=== PATIENT | female | born 1950 | race Caucasian/White ===

== ENCOUNTER → 2018-05-10 15:27 | Outpatient (CLI) | payer MEDICARE, SELFPAY ==
--- NOTE | 2018-05-10 15:40 | RAD_ITS ---
STUDY: X-RAY - THORACIC SPINE REASON FOR EXAM: Female, 67 years old. Mid back pain TECHNIQUE: Two view(s) of the thoracic spine were obtained. COMPARISON: Thoracic spine and lumbar spine reports dated May 19, 2010 FINDINGS: Normal kyphosis of the thoracic spine. There is no significant scoliosis. There is marked decreased height of L1. There is minimal retrolisthesis of bone. There are small osteophytes scattered throughout the thoracic spine. There is mild disc space narrowing scattered throughout the thoracic spine. The thoracic aorta is ectatic. RAD/Thoracic Spine 2 Views IMPRESSION: There is marked compression of L1 which was not mentioned in the prior reports, but appears chronic. There is minimal retrolisthesis of bone at this level. If determination of acuity is needed, an MRI or nuclear medicine scan can be obtained. There are mild degenerative changes scattered throughout the thoracic spine. Electronically Signed: Anay Renee MD at 17:55 EDT Tel Direct: [phone], Service support ,
[2018-05-10 17:54] LABS: Absolute Lymphocyte Count 1.37 X10^3/ul (0.83-4.51); Absolute Neutrophil Count 3.9 X10^3/uL (2.0-7.7); Basophil# 0.03 X10^3/uL; Basophil% 0.5 % (0-1); Eosinophil# 0.15 X10^3/uL; Eosinophils% 2.5 % (0-5); Hematocrit 42.8 % (37-47); Hemoglobin 13.7 g/dl (12.0-15.0); Lymphocyte # 1.37 X10^3/ul (4.0); Lymphocyte % 23.2 % (19-41); Mean Corpuscular Hgb 27.4 pg (27.0-32.0); Mean Corpuscular Volume 85.6 fL (81-99); Mean Platelet Vol. 11.3 fl (6.2-12.0); Monocyte# 0.41 X10^3/uL; Monocyte% 6.9 % (0-10); Neutrophil # 3.93 X10^3/uL (2.7-7.7); Neutrophil % 66.7 % (47-70); Platelet Count 285 K/mm3 (150-450); RBC Distribution Width CV 14.3 % (11.6-14.6); RBC Distribution Width SD 44.2 fl (35.1-43.9); White Blood Count 5.9 K/mm3 (4.4-11.0)
[2018-05-10 17:57] LABS: POSITIVE COUNT NO; POSITIVE DIFFERENTIAL NO; POSITIVE MORPHOLOGY NO
[2018-05-10 18:52] LABS: Vitamin D,25 Hydroxy 33.4 ng/mL (29.95-100.01)
[2018-05-10 18:58] LABS: Anion Gap 8 (5-15); BUN 18 mg/dL (7-18); BUN/Creat Ratio 19.8 RATIO (10-20); Calcium,Total 9.1 mg/dL (8.5-10.1); Chloride 107 mmol/L (98-107); Cholesterol 169 mg/dL (200); Creatinine, Serum 0.91 mg/dL (0.55-1.02); EST Glomerular Filtration Rate 66 mL/min (>60); Est Glom Filt Rate - Afr Amer 80 mL/min (>60); Glucose 74 mg/dL (74-106); High Density Lipoprotein 52 mg/dL; Potassium 3.6 mmol/L (3.5-5.1); Sodium Level 141 mmol/L (136-145); Thyroid Stim Hormone (TSH) 1.25 uIU/mL (0.358-3.74); Triglycerides 74 mg/dL; Very Low Density Lipoprotein 15 mg/dL (5-40)
== END ==
PROVIDERS: Family Provider Family Medicine; PCP Family Medicine; Visit Provider Family Medicine
DX: Z00.00 Encounter for general adult medical examination without abnormal findings (principal); S29.019A Strain of muscle and tendon of unspecified wall of thorax, initial encounter; R33.9 Retention of urine, unspecified; E55.9 Vitamin D deficiency, unspecified; R39.9 Unspecified symptoms and signs involving the genitourinary system
CPT/HCPCS: 36415; 72070; 80048; 80061; 82306; 84443; 85025; 87086; 87088

== ENCOUNTER 2020-09-28 08:01 | Outpatient (RCR) | payer MEDICARE, SELFPAY ==
[2020-09-28] MEDS: COVID-19 VACC, MRNA(PFIZER)/PF 30 MCG/0.3 ML SYRINGE IM (10:57)
[2020-10-19] MEDS: COVID-19 VACC, MRNA(PFIZER)/PF 30 MCG/0.3 ML SYRINGE IM (10:44)
== END 2020-12-28 23:59 ==
LOC: IMMUN 08:01
PROVIDERS: PCP Family Medicine; Visit Provider Family Medicine
DX: Z23 Encounter for immunization (principal)
CPT/HCPCS: 0001A; 0002A; 91300

== ENCOUNTER 2021-08-05 13:00 | Emergency (ER) | payer MEDICARE, SELFPAY ==
[2021-08-05 13:00] VITALS: BP 139/90; PULSE 106; RESP 16; TEMP 36.4; O2SAT 97; BMI 27.4
--- NOTE | 2021-08-05 13:03 | RAD_ITS ---
STUDY: X-RAY - RIGHT ANKLE REASON FOR EXAM: Female, 71 years old. INJURY TECHNIQUE: 3 view(s) of the ankle. COMPARISON: None. FINDINGS: Oblique fracture of the medial malleolus. Nondisplaced transverse fracture of the lateral malleolus. Normal tibiotalar articulation and ankle mortise. Normal visualized talus and calcaneus. The visualized subtalar, talonavicular, calcaneocuboid and tarsal articulations are normal. Diffuse soft tissue swelling. RAD/Ankle min 3 Views IMPRESSION: Nondisplaced transverse fracture of the lateral malleolus and oblique fracture of the medial malleolus with diffuse soft tissue swelling. Electronically Signed: Kam Schulz MD at 13:30 EST , Service support ,
--- NOTE | 2021-08-05 15:19 | EKG12_ITS ---
Test Reason : LOWER EXTREMETY Blood Pressure : / mmHG Vent. Rate : 094 BPM Atrial Rate : 094 BPM P-R Int : 172 ms QRS Dur : 070 ms QT Int : 354 ms P-R-T Axes : 009 -26 013 degrees QTc Int : 442 ms Normal sinus rhythm Normal ECG Confirmed by FERMÍN DRAPER, GUEVARA ([id number]), editor school photograph VICTOR MANUEL HUERTAS ([id number]) on 08/08/2021 11:10:23 AM Referred By: MARY Confirmed By:GUEVARA KOVACS MD
[2021-08-05] MEDS: Morphine 4 MG/ML Syringe IV (15:41)
[2021-08-05] MEDS: Ondansetron 4 MG/2 ML Vial IV (15:41)
[2021-08-05] MEDS: 0.9% Normal Saline 1,000 ML 150 ML IV (15:43)
[2021-08-05 15:52] VITALS: BP 116/99; PULSE 101
--- NOTE | 2021-08-05 15:54 | EDS_ITS ---
HPI History of Present Illness Chief Complaint: Lower Extremity Injury Informant: patient Occured/Mechanism Mechanism/Context: Yes blunt trauma and Yes fall Comment: Patient missed last step. Onset/Context/Timing Context: Sudden Onset Timing: Continuous Quality of Pain: Dull and Aching Location: Right ankle Current Severity: Mild Maximum Severity: Severe Worsened by: Any type of movement Relieved by: Nothing Associated Symptoms Associated Symptoms: Positive for Loss of Funtion Narrative Narrative: Patient is a healthy 71-year-old woman who missed the last 6 Depp while blowing leaves outside. She is on no medication. She does not smoke. She does not drink. Her only complaint is ankle pain. Prior similar symptoms: No Recent Illness/Hospitalization: No PFSH PFSH Medical History no medical history no medical history Home Medications hydrocodone-acetaminophen 1 tab PO Q6H PRN PRN 5 Days #20 tablet 08/05/21 [Rx Last Taken Unknown] Allergy/AdvReac Type Severity Reaction Status Date / Time No Known Allergies Allergy Verified 08/05/21 13:02 Family History no significant family his Surgical History no surgical history no surgical history Social History (Updated 08/05/21 @ 15:[address] Joao Kc MD) household members: none Smoking Status: Never smoker alcohol intake: never substance use type: does not use ROS ROS ED Constitutional Constitutional ED: Denies chills, fever(s), subjective, sweats or weight loss Eyes Eyes: Denies blurry vision, change in vision or diplopia ENT ENT ED: Denies ear pain, rhinorrhea or sore throat Cardiovascular Cardiovascular: Denies chest pain or palpitations Respiratory/Chest Respiratory/Chest: Denies cough, dyspnea or dyspnea on exertion Gastrointestinal Gastrointestinal: Denies diarrhea, nausea or vomiting Genitourinary Genitourinary ED: Denies dysuria, hematuria or urinary frequency Musculoskeletal Musculoskeletal: Denies arthralgias, back pain, myalgias or neck pain Neurologic Neurologic: Denies paresthesias or weakness Hematologic/Lymphatic Hematologic/Lymphatic: Denies easy bleeding or easy bruising EXAM Physical Exam Const Vital Signs: 08/05/21 13:00 08/05/21 15:52 Temperature 97.5 F L Temperature Source Temporal Pulse Rate 106 H 101 H Respiratory Rate 16 Blood Pressure 139/90 H 116/99 H Blood Pressure Mean 106 104 Pulse Ox 97 Oxygen Delivery Method Room Air Positive well nourished and well developed General Appearance ED: well developed and other And appears uncomfortable and is anxious. HEENT normocephalic and atraumatic Eyes PERRL Eyes Narrative: Extract muscles are intact. Neck full ROM and supple Resp normal respiratory effort and clear to auscultation bilaterally Cardio regular rate, regular rhythm, S1 normal heart sound, S2 normal heart sound and no murmurs GI GI Narrative: No pain palpation of pelvis. Back/Spine no CVA tenderness Cervical Spine: Negative for cervical spine tenderness Thoracic Spine / Upper Back: Negative for thoracic spinal tenderness Lumbar Spine / Lower Back: Negative for lumbar spinal tenderness Extremity Negative for normal to inspection or full ROM Extremity Narrative: Patient has significant swelling in the right ankle with pain ovation over the lateral medial malleolus. DP and PT pulse are palpable. She able to move her toes General Extremety ED: Yes edema; Negative for cyanosis or weight-bearing difficulty General Extremity: edema; Negative for cyanosis or weight-bearing difficulty Psych mental status grossly normal Mood & Affect: anxious Skin no wounds Lesions: no lesions Rashes: no rashes MDM MDM MDM Narrative Medical decision making narrative: X-ray of the ankle per nurse protocol was en tered. Patient has a bimalleolar ankle fracture. Since he requires surgery EKG, chest x-ray and appropriate labs were ordered. Dr. Olguin was paged or the doctor change control manager for the group. She has never been seen by orthopedics or ankle specialist. Lab Data Attestation: I reviewed the patient's lab results. Labs: Laboratory Results - last 24 hr 08/05/21 08/05/21 15:39 15:39 WBC 9.5 RBC 5.21 Hgb 14.2 Hct 45.0 MCV 86.4 MCH 27.3 MCHC 31.6 L RDW Std Deviation 43.6 RDW Coeff of Maldonado 13.7 Plt Count 280 MPV 11.1 Sodium 141 Potassium 3.5 Chloride 108 H Carbon Dioxide 27.0 Anion Gap 6 BUN 18 Creatinine 0.98 Estim Creat Clear Calc 50.72 Est GFR (MDRD) Af Amer 73 Est GFR (MDRD) Non-Af 60 BUN/Creatinine Ratio 18.4 Glucose 97 Calcium 9.8 Radiography X-Ray: - (Three-view x-ray of the right ankle reveals a bimalleolar fracture. There is no displacement or angulation. There is significant soft tissue swelling noted. There is no widening of the mortise.) Diagnostic Testing: Clinical Impression(s) from Imaging Studies Ankle X-Ray 08/05/21 13:03 IMPRESSION: Nondisplaced transverse fracture of the lateral malleolus and oblique fracture of the medial malleolus with diffuse soft tissue swelling. Electronically Signed: Kam Schulz MD at 13:30 EST , Service support , Chest X-Ray 08/05/21 16:05 IMPRESSION: Normal x-ray examination of the chest. Electronically Signed: Hira Quiroz MD at 16:48 EST , Service support , Chest x-ray reveals no acute pathology. Cardiac silhouette size normal. Lung parenchyma is unremarkable. Osseous trucks are unremarkable. EKG Initial EKG: Attestation: I personally reviewed and interpreted this EKG as follows: Interpretation: Sinus Rhythm (EKG is normal. Rate is 94. DC interval 272 ms. QS duration 70 ms. QT duration 3 and 54 ms. [place] is normal.) Procedures Lower Extremity Splints Lower Extremity Splint: Plaster and Stirrup (Posterior short leg and stirrup splint was applied by me with assistance by nurse.) Splint Fabrication: Fabricated Location: Right Discharge Plan Triage Chief Complaint: Lower Extremity Injury ED Provider: Joao Kc Dx/Rx/DC Orders Clinical Impression: Bimalleolar fracture of right ankle Instructions: Ankle Fracture ORIF, ED Ankle Fracture Prescriptions: New hydrocodone-acetaminophen [hydrocodone-acetaminophen] 1 TABLET tablet 1 tab PO Q6H PRN PRN (Reason: Pain) 5 Days Qty: 20 RF: 0 Primary Care Provider: Michelle Deng Referrals: Michelle Deng MD [Primary Care Provider] - Cleveland Ahuja DPM [STAFF PHYSICIAN] - 3-5 Days Activity Restrictions/Additional Instructions: 1. Elevate foot, toes above nose 2. Apply ice 8-10 times per day 20 to 30 minutes per application 3. Do not place any weight on your right foot 4. Keep splint absolutely clean and dry 5. Customer Service Professional from Dr. Claudio Ahuja's office will contact you on Sunday to schedule outpatient appointment and discuss surgery Disposition Disposition: Home, Self Care
--- NOTE | 2021-08-05 16:05 | RAD_ITS ---
STUDY: X-RAY CHEST REASON FOR EXAM: Female, 71 years old. Preop for leg surgery TECHNIQUE: Single AP portable view of the chest. COMPARISON: None. FINDINGS: The lungs are clear and expanded. There is no demonstrated pleural abnormality. Normal size heart. Normal mediastinum and dell. Normal visualized pulmonary arteries. Normal visualized aortic arch and descending thoracic aorta. Normal visualized thoracic spine. Normal visualized ribs, clavicles, and shoulders. There is no demonstrated abnormality of the visualized soft tissue structures of the upper abdomen. RAD/Chest 1 View (Portable) IMPRESSION: Normal x-ray examination of the chest. Electronically Signed: Hira Quiroz MD at 16:48 EST , Service support ,
[2021-08-05 16:11] LABS: Hemoglobin 14.2 g/dL (12.0-15.0); Mean Corp Hgb Conc 31.6 g/dL (32-36); Mean Corpuscular Hgb 27.3 pg (27.0-32.0); Mean Corpuscular Volume 86.4 fL (81-99); Mean Platelet Vol. 11.1 fl (6.2-12.0); Platelet Count 280 K/mm3 (150-450); RBC Distribution Width CV 13.7 % (11.6-14.6); RBC Distribution Width SD 43.6 fl (35.1-43.9); Red Blood Count 5.21 M/mm3 (4.2-5.4); White Blood Count 9.5 K/mm3 (4.4-11.0)
[2021-08-05 16:21] LABS: Anion Gap 6 (5-15); BUN 18 mg/dL (7-18); BUN/Creat Ratio 18.4 RATIO (10-20); Calcium,Total 9.8 mg/dL (8.5-10.1); Chloride 108 mmol/L (98-107); Creatinine, Serum 0.98 mg/dL (0.55-1.02); EST Glomerular Filtration Rate 60 mL/min (>60); Est Glom Filt Rate - Afr Amer 73 mL/min (>60); Estimated Creatinine Clearance 50.72 ml/min; Glucose 97 mg/dL (74-106); Potassium 3.5 mmol/L (3.5-5.1); Sodium Level 141 mmol/L (136-145)
--- NOTE | 2021-08-05 17:50 | CM.ED ---
SOCIAL WORK Referral Source: Dr. Kc Reason for Consult: Resources Patient now with cast to right leg due to right ankle fracture. 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 Patient states has been speaking with family in [place] and is hopeful they will come to [place] to help care for mother. Patient provided with home health resources and private duty services. Patient to follow up with mother's PCP. All questions answered. Plan: Home with resources provided Khai Silva MSW, RIVER GUIDE
[2021-08-05] MEDS: HYDROcodone Bitartrate/Apap 5/325 Tablet PO (17:55)
[2021-08-05 18:35] VITALS: RESP 17; O2SAT 98
== END 2021-08-05 18:36 | disposition home or self-care (01) ==
PROVIDERS: Emergency Provider Emergency Medicine; PCP Family Medicine; Visit Provider Emergency Medicine
DX: S82.841A Displaced bimalleolar fracture of right lower leg, initial encounter for closed fracture (principal); W19.XXXA Unspecified fall, initial encounter
CPT/HCPCS: 71045; 73610; 80048; 85027; 93005; 96361; 96374; 96375; 99285; J7030; A4216; J2405

== ENCOUNTER 2021-08-08 14:03 | Outpatient (CLI) | payer MEDICARE, SELFPAY ==
[2021-08-08 15:26] LABS: Vitamin D,25 Hydroxy 54.5 ng/mL
== END 2021-08-08 23:59 | disposition short-term general hospital (02) ==
PROVIDERS: PCP Family Medicine; Visit Provider Podiatrist
DX: E55.9 Vitamin D deficiency, unspecified (principal)
CPT/HCPCS: 36415; 82306

== ENCOUNTER 2021-11-18 15:00 | Outpatient (RCR) | payer MEDICARE, SELFPAY ==
--- NOTE | 2021-10-25 16:36 | HP.PTEVAL_ITS ---
Patient's Visit Information HARVEY PABLO is a 71 year old F referred to Physical Therapy by Dr. Dottie Macario DPM with a diagnosis of R ankle Fx. Date of Evaluation: 10/25/21 Physical Therapist: Mauricio Lim, PT, ATC - Visit Plan Frequency: 2-3x /Week Duration: 4-6 Weeks Plan: Begin with transitioning to FWBing. Progress to no CAM boot as tolerated. R ankle stretching and strengthening, balance and proprio, nustep, and HEP - Subjective DOI: 08/05/21. Pt reports she was blowing leaves at that time and stepped off a step which resulted in a complex fracture of her R ankle. Pt reports this did not require surgery. Pt notes she was in a cast for 6 weeks, and now has been in a CAM boot for the past month. Pt reports she has been weight bearing for the past week now. Pt reports she is very motivated to get better at this time tiffanie use she lives with her mom and takes care of her. Pt also notes she is very active and needs to get better as soon as possible. Pt reports she has been walking with FWBing at home with her cane.Sleep difficulty secondary to pain. Pt is allowed to PWB with walker, but is encouraged to transition to FWBing as tolerated, and to transition to no CAM boot and walking shoe. No stairs at home. 0/10 pain at rest, 3/10 at worst (when pt runs out of pain meds) - Pain R ankle Pain Intensity (Out of 10): 0 Pain Intensity Range: 3 - Objective Neuro: B LE sensation is WNL to light touch. ROM: L ankle DF= 10, PF= 50; R ankle DF= 2, PF= 20. MMT: L ankle 5/5 throughout. R ankle is grossly 3-/5 throu ghout. Gait: Pt is able to ambulate approximately 4 steps in cam boot - Balance/Special Test Scores Lower Extremity Functional Score: 26 - Goals Goal 1:: Decrease R ankle pain x 50% to aid with sleep Goal Time Frame: 4-6 Weeks Goal 2:: Increase R ankle strength x 1 grade to aid with IADL's Goal Time Frame: 4-6 Weeks Goal 3:: Increase R ankle DF ROM x 10 degrees to aid with restoring gait pattern Goal Time Frame: 4-6 Weeks Goal 4:: I with HEP Goal Time Frame: 4-6 Weeks - Rehabilitation Potential Physical Therapy Diagnosis: Pt has R ankle pain, weakness, and limited ROM secondary to R ankle Fx Rehabilitation Potential: Good - Anticipated Interventions Thank you for the opportunity to evaluate your patient. For Medicare and Medicare HMO plans, please review the plan of care and approve it. It will need to be FAXED BACK to us at [phone] for Medicare purposes. For Medicare only, by signing this I certify the plan of care. Please let me know if there are questions or concerns regarding this plan of care. Physician Signature: Date:
--- NOTE | 2022-01-06 13:39 | HP.PTDCSUM ---
It has been my pleasure to treat HARVEY PABLO referred by Dr. Dottie Macario, DPM, with the diagnosis of R ankle Fx for a total of 8 visit(s). Discharge Date: Please see the following information for a summary of their discharge status. Subjective: Pt reports she is not ready for discharge but cant afford to continue. R ankle Pain Intensity (Out of 10): 5 % Improvement: 80 Objective/Function: R ankle pain ranges from 0-5/10. R ankle MMT: grossly 4-/5 throughout. R ankle DF ROM: 7 degrees. Pt is I with HEP. Pt is progressing well toward Rx goals Goal 1:: Decrease R ankle pain x 50% to aid with sleep Goal Progress: Progressing Goal 2:: Increase R ankle strength x 1 grade to aid with IADL's Goal Progress: Progressing Goal 3:: Increase R ankle DF ROM x 10 degrees to aid with restoring gait pattern Goal Progress: Progressing Goal 4:: I with HEP Goal Progress: Goal Met Plan: Discontinue to HEP If there are questions or concerns regarding this patient's physical therapy, please feel free to call me at [phone]. Thank you for the referral of this patient. Sincerely, Mauricio Lim, PT, ATC Balance/Gait/Functional tests - Balance/Special Test Scores Lower Extremity Functional Score: 42
== END 2021-11-18 19:00 | disposition home or self-care (01) ==
LOC: PT 15:00
PROVIDERS: PCP Family Medicine; Referring Provider Podiatrist; Visit Provider Podiatrist
DX: S82.891D Other fracture of right lower leg, subsequent encounter for closed fracture with routine healing (principal); X58.XXXD Exposure to other specified factors, subsequent encounter
CPT/HCPCS: 97110; 97161; 97164

== ENCOUNTER → 2022-02-06 | Outpatient (CLI) | payer MEDICARE, SELFPAY | END | disposition home or self-care (01) | LOC: MFPLAB 16:07 | PROVIDERS: PCP Family Medicine; Visit Provider Family Medicine | DX: N39.0 Urinary tract infection, site not specified (principal) | CPT/HCPCS: 87086; 87088 ==

== ENCOUNTER 2022-07-19 17:38 | Inpatient (IN) | payer MEDICARE, SELFPAY ==
[2022-07-19 17:38] VITALS: BP 120/76; PULSE 87; RESP 16; TEMP 36.5; O2SAT 98; BMI 22.6
--- NOTE | 2022-07-19 18:10 | RAD_ITS ---
STUDY: X-RAY - PELVIS AND RIGHT HIP REASON FOR EXAM: Female, 72 years old. fall TECHNIQUE: 3 views of the pelvis and hip. COMPARISON: None. FINDINGS: There is a non-specific bowel gas pattern. Normal visualized soft tissue structures. Normal bilateral iliac wings, sacroiliac joints and visualized sacrum. Normal bilateral superior and inferior pubic rami. Normal pubic symphysis. Normal bilateral ischial tuberosities. Acute impacted fracture the subcapital femoral neck. Normal acetabulum. Normal hip joint. RAD/Hip Min 2 Views (Portable) IMPRESSION: Acute impacted fracture the subcapital femoral neck. Electronically Signed: Julito Santana MD at 18:27 EST ,
[2022-07-19 18:15] VITALS: BP 124/99; PULSE 91; RESP 20; O2SAT 96
[2022-07-19 18:23] VITALS: O2SAT 98
--- NOTE | 2022-07-19 18:40 | EDS_ITS ---
HPI History of Present Illness HPI Narrative: Patient presents after a fall that occurred today. Patient states she tripped and fell. Patient states she landed on her right hip. Patient denies any loss of consciousness. Patient states she did hit her head. Patient was not on any blood thinners. Patient denies any paresthesias or weakness. Patient describes her pain as cramping and aching. Patient states her pain is worse with any movement. Patient states it is better with rest. Patient states she normally walks without any assistance. Chief Complaint: Fall Informant: patient Occured/Mechanism Mechanism/Context: Yes fall Onset/Context/Timing Onset: Today Context: Sudden Onset Timing: Continuous Quality of Pain: - (Cramping) Location: Right hip Worsened by: Movement Relieved by: Rest Associated Symptoms Associated Symptoms: Negative for Parasthesia, Weakness or Loss of Funtion PFSH PFSH Medical History no medical history Home Medications aspirin 81 mg tablet,delayed release 81 mg PO DAILY 07/19/22 [History Last Taken Unknown] Allergy/AdvReac Type Severity Reaction Status Date / Time hydromorphone [From Dilaudid] AdvReac Vomiting Verified 07/19/22 17:40 Surgical History no surgical history no surgical history Social History household members: none Smoking Status: Never smoker alcohol intake: never substance use type: does not use ROS ROS ED Constitutional Constitutional ED: Denies chills or fever(s) Eyes Eyes: Denies blurry vision or change in vision ENT ENT ED: Denies rhinorrhea or sore throat Cardiovascular Cardiovascular: Denies chest pain or palpitations Respiratory/Chest Respiratory/Chest: Denies cough or dyspnea Gastrointestinal Gastrointestinal: Denies nausea or vomiting Genitourinary Genitourinary ED: Denies dysuria or hematuria Musculoskeletal Musculoskeletal: Denies back pain or neck pain Integumentary Denies abscess or rash Neurologic Neurologic: Denies headache(s) or weakness Allergic/Immunologic Allergic/Immunologic ED: Denies mouth swelling or urticaria EXAM Physical Exam Const Vital Signs: 07/19/22 17:38 07/19/22 18:15 07/19/22 18:23 Temperature 97.7 F L Temperature Source Temporal Pulse Rate 87 91 Respiratory Rate 16 20 H Respiratory Effort Normal Non-Labored Respiratory Depth Normal Respiratory Pattern Normal Blood Pressure 120/76 124/99 H Blood Pressure Mean 90 107 Pulse Ox 98 96 98 Oxygen Delivery Method Room Air Room Air Room Air Positive well nourished and well developed General Appearance ED: well developed and NAD HEENT Reports moist mucous membranes Neck supple and no JVD Resp normal respiratory effort and clear to auscultation bilaterally Cardio regular rate, regular rhythm and no murmurs GI normal to inspection, nondistended, normoactive bowel sounds and non-tender Palpation: soft Extremity Extremity Narrative: There is shortening and external rotation of the right lower extremity. Range of motion was limited in all motions of the right hip secondary to pain. Sensation was intact to light touch in all digits. Pedal pulses are equal bilaterally. Neuro oriented x3, CN's II-XII intact bilaterally, moves all extremities and no sensory deficits noted Sensorium / Orientation: alert Motor Exam: strength 5/5 throughout Psych mental status grossly normal Skin no rashes or lesions noted MDM MDM MDM Narrative Medical decision making narrative: X-rays of the right hip were obtained. There are 3 views. On my interpretation, there is a subcapital fracture of the right femoral neck. There is some displacement. Radiologist also interpreted the x-rays and agrees. Portable 1 view chest x-ray was obtained. On my interpretation, lung marlow are clear. There is normal cardiac silhouette. Bony thorax is normal. There is no acute process noted. Radiologist also interpreted the x-ray and agrees. EKG was obtained. On my interpretation, it showed a normal sinus rhythm with a rate of 88. [place] interval, QRS interval, and QTc intervals were all normal. [place] was normal. There are no acute ST or T wave changes. Basic labs were obtained. CBC was within normal limits. PT was INR and PTT were within normal limits. Comprehensive metabolic profile was essentially within normal limits. Case was discussed with Dr. Correa from orthopedics. He will see the patient in consultation. Case was discussed with the hospitalist. He will admit the patient to his service. Patient understood and was agreeable with the plan. All questions were answered. Lab Data Attestation: I reviewed the patient's lab results. Labs: Laboratory Results - last 24 hr 07/19/22 07/19/22 07/19/22 18:26 18:26 18:26 WBC 10.2 RBC 4.72 Hgb 13.2 Hct 41.4 MCV 87.7 MCH 28.0 MCHC 31.9 L RDW Std Deviation 43.8 RDW Coeff of Maldonado 13.5 Plt Count 273 MPV 10.7 Immature Gran % (Auto) 0.800 Neut % (Auto) 82.1 H Lymph % (Auto) 10.7 L [place] % (Auto) 5.3 Eos % (Auto) 0.8 Baso % (Auto) 0.3 Absolute Neuts (auto) 8.3 H Absolute Lymphs (auto) 1.09 Nucleated RBC % 0 PT 14.1 INR 1.1 APTT 26.8 Sodium 141 Potassium 3.6 Chloride 106 Carbon Dioxide 26.0 Anion Gap 9 BUN 27 H Creatinine 1.04 H Estim Creat Clear Calc 47.12 Est GFR (MDRD) Af Amer 67 Est GFR (MDRD) Non-Af 56 L BUN/Creatinine Ratio 26.0 H Glucose 106 Calcium 10.0 Total Bilirubin 1.20 H AST 32 ALT 29 Alkaline Phosphatase 115 Total Protein 8.4 H Albumin 4.1 Globulin 4.3 H Albumin/Globulin Ratio 1.0 Radiography Chest X-Ray - ED: 1 View, Read by ED Physician, Read by Radiologist and No Acute Disease Diagnostic Testing: Clinical Impression(s) from Imaging Studies Hip X-Ray 07/19/22 18:10 IMPRESSION: Acute impacted fracture the subcapital femoral neck. Electronically Signed: Julito Santana MD at 18:27 EST , EKG Initial EKG: Attestation: I personally reviewed and interpreted this EKG as follows: Interpretation: Sinus Rhythm (70) and No Acute Injury Pattern Prior EKG tracings: available for review Prior: Unchanged (08/05/2021) Discharge Plan Dx/Rx/DC Orders Clinical Impression: Fracture of right hip, Fall Disposition Disposition: Acute Care [facility]
[2022-07-19] MEDS: Morphine 4 MG/ML Syringe IV ×2 (18:51→21:32)
--- NOTE | 2022-07-19 19:00 | RAD_ITS ---
STUDY: X-RAY CHEST REASON FOR EXAM: Female, 72 years old. Cough TECHNIQUE: Single AP portable view of the chest. COMPARISON: 08/05/2021 FINDINGS: The lungs are clear and expanded. There is no demonstrated pleural abnormality. Normal size heart. Normal mediastinum and dell. Normal visualized pulmonary arteries. There is atherosclerotic tortuosity of the aortic arch and descending thoracic aorta. Normal visualized thoracic spine. Normal visualized ribs, clavicles, and shoulders. There is no demonstrated abnormality of the visualized soft tissue structures of the upper abdomen. RAD/Chest 1 View (Portable) IMPRESSION: No active disease. Electronically Signed: Julito Santana MD at 19:29 EST ,
[2022-07-19 19:06] LABS: Absolute Lymphocyte Count 1.09 X10^3/uL (0.83-4.51); Absolute Neutrophil Count 8.3 X10^3/uL (2.0-7.7); Basophil# 0.03 X10^3/uL; Basophil% 0.3 % (0-1); Eosinophil# 0.08 X10^3/uL; Eosinophils% 0.8 % (0-5); Hematocrit 41.4 % (37-47); Hemoglobin 13.2 g/dL (12.0-15.0); Lymphocyte # 1.09 X10^3/ul (0.83-4.51); Lymphocyte % 10.7 % (19-41); Mean Corp Hgb Conc 31.9 g/dL (32-36); Mean Corpuscular Volume 87.7 fL (81-99); Mean Platelet Vol. 10.7 fl (6.2-12.0); Monocyte# 0.54 X10^3/uL; Monocyte% 5.3 % (0-10); NRBC Flagged by Analyzer 0 % (0-5); Neutrophil # 8.33 X10^3/uL (2.7-7.7); Neutrophil % 82.1 % (47-70); Platelet Count 273 K/mm3 (150-450); RBC Distribution Width CV 13.5 % (11.6-14.6); RBC Distribution Width SD 43.8 fl (35.1-43.9); Red Blood Count 4.72 M/mm3 (4.2-5.4); White Blood Count 10.2 K/mm3 (4.4-11.0)
[2022-07-19 19:14] LABS: International Normalized Ratio 1.1; Prothrombin Time (Protime)PT. 14.1 SECONDS (11.7-14.9)
[2022-07-19 19:15] LABS: Partial Thromboplast Time 26.8 Seconds (24.1-36.2)
[2022-07-19 19:24] LABS: AST(SGOT) 32 U/L (15-37); Alanine Aminotransfer ALT/SGPT 29 U/L (13-56); Albumin, Serum 4.1 g/dL (3.2-5.0); Alkaline Phosphatase 115 U/L (45-117); Anion Gap 9 (5-15); BUN 27 mg/dL (7-18); Chloride 106 mmol/L (98-107); Creatinine, Serum 1.04 mg/dL (0.55-1.02); EST Glomerular Filtration Rate 56 mL/min (>60); Est Glom Filt Rate - Afr Amer 67 mL/min (>60); Estimated Creatinine Clearance 47.12 ml/min; Globulin 4.3 g/dL (2.2-4.2); Glucose 106 mg/dL (74-106); Potassium 3.6 mmol/L (3.5-5.1); Protein, Total 8.4 g/dL (6.4-8.2); Sodium Level 141 mmol/L (136-145)
[2022-07-19 19:33] VITALS: BP 123/87; PULSE 88; RESP 17; TEMP 36.4; O2SAT 99
--- NOTE | 2022-07-19 19:46 | PCM.HP.STD ---
HPI - General General Date of Admission: 07/19/22 HPI Narrative HARVEY PABLO, is a 72 F who presents to the hospital after mechanical fall on uneven concrete. She landed on her right side and has a femoral neck fracture. She does have any significant medical history only takes an aspirin no significant family history either. She is never had surgery before but she did have an ankle fracture few years ago that was managed with just a cast. Surgical risk calculator is below average risk. She did hit her head but did not lose consciousness. [facility] Medical History no medical history no medical history Home Medications aspirin 81 mg tablet,delayed release 81 mg PO DAILY 07/19/22 [History Last Taken Unknown] Allergy/AdvReac Type Severity Reaction Status Date / Time hydromorphone [From Dilaudid] AdvReac Vomiting Verified 07/19/22 17:40 Family History (Updated 07/19/22 @ 19:[address] Claudio Wolf MD) Other CVA (cerebral vascular accident) Heart disease Surgical History no surgical history no surgical history Social History household members: none Smoking Status: Never smoker alcohol intake: never substance use type: does not use ROS Constitutional Constitutional: Denies chills, fatigue, fever(s) or malaise Eyes Eyes: Denies blurry vision ENT HEENT: Denies headache(s) or nasal discharge Cardiovascular Cardiovascular: Denies chest pain, dyspnea on exertion or syncope Respiratory/Chest Respiratory/Chest: Denies cough, shortness of breath at rest or shortness of breath with exertion Gastrointestinal Gastrointestinal: Denies constipation, diarrhea, nausea or vomiting Genitourinary Genitourinary: Denies dysuria Musculoskeletal Musculoskeletal: Reports joint pain Neurologic Neurologic: Denies focal weakness, numbness or tremor(s) Psychiatric Psychiatric: Denies anxiety or depression Vital Signs Vital Signs Vital Signs: 07/19/22 17:38 07/19/22 18:15 07/19/22 18:23 Temperature 97.7 F L Temperature Source Temporal Pulse Rate 87 91 Respiratory Rate 16 20 H Respiratory Effort Normal Non-Labored Respiratory Depth Normal Respiratory Pattern Normal Blood Pressure 120/76 124/99 H Blood Pressure Mean 90 107 Pulse Ox 98 96 98 Oxygen Delivery Method Room Air Room Air Room Air 07/19/22 19:33 Temperature 97.6 F L Temperature Source Temporal Pulse Rate 88 Respiratory Rate 17 Respiratory Effort Respiratory Depth Respiratory Pattern Blood Pressure 123/87 H Blood Pressure Mean 99 Pulse Ox 99 Oxygen Delivery Method Room Air Weight Weight: 140 lb Body Mass Index (BMI) 22.6 Physical Exam Narrative General: Alert, Oriented x3, Cooperative, No apparent distress HEENT: Atraumatic, PERRLA, EOMI, Normocephalic Oral: Moist Mucosa Neck: Supple, No JVD Lungs: Clear to auscultation, Normal air movement, No rhonchi, No wheeze, No rales Cardiovascular: Regular rate, Regular Rhythm, Normal S1, Normal S2, No murmurs Abdomen: Soft, Non Tender, Non-Distended, No Hepato-splenomegaly Extremities: No edema, Capillary Refill Less than 3 Seconds Skin: No rashes, No breakdown Musculoskeletal: Right hip pain Neurological: Cranial nerves II-XII grossly intact, Motor Exam 5/5 strength throughout, Sensory exam intact to light touch and pain Psych/Mental Status: Normal Affect, Appropriate Results Lab / Micro Data Result Diagrams: 07/19/22 18:26 07/19/22 18:26 Labs: Laboratory Results - last 24 hr 07/19/22 18:26: WBC 10.2, RBC 4.72, Hgb 13.2, Hct 41.4, MCV 87.7, MCH 28.0, MCHC 31.9 L, RDW Std Deviation 43.8, RDW Coeff of Maldonado 13.5, Plt Count 273, MPV 10.7, Immature Gran % (Auto) 0.800, Neut % (Auto) 82.1 H, Lymph % (Auto) 10.7 L, [place] % (Auto) 5.3, Eos % (Auto) 0.8, Baso % (Auto) 0.3, Absolute Neuts (auto) 8.3 H, Absolute Lymphs (auto) 1.09, Nucleated RBC % 0 07/19/22 18:26: PT 14.1, INR 1.1, APTT 26.8 07/19/22 18:26: Sodium 141, Potassium 3.6, Chloride 106, Carbon Dioxide 26.0, Anion Gap 9, BUN 27 H, Creatinine 1.04 H, Estim Creat Clear Calc 47.12, Est GFR (MDRD) Af Amer 67, Est GFR (MDRD) Non-Af 56 L, BUN/Creatinine Ratio 26.0 H, Glucose 106, Calcium 10.0, Total Bilirubin 1.20 H, AST 32, ALT 29, Alkaline Phosphatase 115, Total Protein 8.4 H, Albumin 4.1, Globulin 4.3 H, Albumin/Globulin Ratio 1.0 Radiology Impression Hip X-Ray 07/19/22 18:10 IMPRESSION: Acute impacted fracture the subcapital femoral neck. Electronically Signed: Julito Santana MD at 18:27 EST Reading Location ID and State: [id number] / [facility] Tel , Service support , Chest X-Ray 07/19/22 19:00 IMPRESSION: No active disease. Electronically Signed: Julito Santana MD at 19:29 EST Reading Location ID and State: [id number] / [facility] , Service support , Assessment & Plan Assessment/Plan (1) Fracture of right hip: PLAN: Plan 1. Right femoral neck fracture ? We will consult orthopedic surgery for operative repair ? She is below average risk ? We will place her on morphine for pain ? We will make her n.p.o. after midnight but allow her to eat tonight ? Repeat lab work in the morning DVT: Lovenox Charges/Coding Visit Charges Inpatient E&M: 90322 Init Hosp L2
[2022-07-19 20:37] VITALS: RESP 15
[2022-07-19 21:19] VITALS: BMI 22.6
[2022-07-19 21:30] VITALS: BP 112/72; PULSE 86; RESP 18; TEMP 36.9; O2SAT 98
[2022-07-19] MEDS: 0.9% Saline Lock 10 ML Syringe IV (21:32)
[2022-07-19 23:19] LABS: Vitamin D,25 Hydroxy 84.7 ng/mL
[2022-07-20] VITALS (13 sets, daily range): BP systolic 82–148; BP diastolic 51–88; PULSE 75–90; RESP 15–20; TEMP 36.2–37.2; O2SAT 92–100; BMI 22.6
[2022-07-20] MEDS: 0.9% Normal Saline 1,000 ML 100 ML IV ×3 (00:11→22:23)
[2022-07-20] MEDS: Ondansetron 4 MG/2 ML Vial IV (00:59)
[2022-07-20] MEDS: Morphine 4 MG/ML Syringe IV (01:00)
--- NOTE | 2022-07-20 06:07 | CON.PCM.OR_ITS ---
HPI Consult Data Date of Consult: 07/20/22 HPI Narrative HPI Narrative: HARVEY PABLO, is a 72 F who presented to [facility] after a fall on uneven concrete 07/19/2022. Patient landed on her right side. Patient is a community ambulator without assistive device. Denies antecedent right hip or groin pain. Reports head injury but no loss of consciousness, no confusion, no headache, no vision or auditory changes. Denies neck pain or neck injury. Denies fevers, chills, nausea vomiting, chest pain or shortness of breath. Patient was evaluated by emergency room physician date of injury and x-rays revealed a displaced right femoral neck fracture. I was called from emergency department. I recommended patient be admitted on the service of the hospitalist and surgical intervention. I saw the patient in consultation this morning. She denied any other symptoms this morning. [facility] Medical History (Updated 07/19/22 @ 21:22 by Timmy Rivers) Ankle fracture Depression Medical History no medical history Home Medications aspirin 81 mg tablet,delayed release 81 mg PO DAILY heart health 07/19/22 [History Last Taken 07/19/22] cholecalciferol (vitamin D3) 25 mcg (1,000 unit) capsule (Vitamin D3) 25 mcg PO DAILY supplement 07/19/22 [History Last Taken 07/19/22] multivitamin 1 tab PO DAILY supplement 07/19/22 [History Last Taken 07/19/22] Allergy/AdvReac Type Severity Reaction Status Date / Time hydromorphone [From Dilaudid] AdvReac Vomiting Verified 07/19/22 17:40 Family History (Updated 07/19/22 @ 19:[address] Claudio Wolf MD) Other CVA (cerebral vascular accident) Heart disease Surgical History no surgical history Social History household members: none Smoking Status: Never smoker alcohol intake: never substance use type: does not use ROS ROS Narrative 12 point review of systems obtained, negative unless otherwise noted in HPI. Vital Signs Vital Signs Vital Signs: 07/19/22 17:38 07/19/22 18:15 07/19/22 18:23 Temperature 97.7 F L Temperature Source Temporal Pulse Rate 87 91 Pulse Strength Respiratory Rate 16 20 H Respiratory Effort Normal Non-Labored Respiratory Depth Normal Respiratory Pattern Normal Blood Pressure 120/76 124/99 H Blood Pressure Mean 90 107 Blood Pressure Source Blood Pressure Position Blood Pressure Location Pulse Ox 98 96 98 Oxygen Delivery Method Room Air Room Air Room Air 07/19/22 19:33 07/19/22 21:30 07/19/22 20:37 Temperature 97.6 F L 98.4 F Temperature Source Temporal Oral Pulse Rate 88 86 Pulse Strength Respiratory Rate 17 18 15 Respiratory Effort Non-Labored Respiratory Depth Normal Respiratory Pattern Normal Blood Pressure 123/87 H 112/72 Blood Pressure Mean 99 85 Blood Pressure Source Monitor Blood Pressure Position Semi-Fowlers Blood Pressure Location Left Arm Pulse Ox 99 98 Oxygen Delivery Method Room Air Room Air 07/19/22 22:00 07/20/22 00:53 07/20/22 02:37 Temperature 97.9 F Temperature Source Temporal Pulse Rate 79 Pulse Strength Weak (1+) Respiratory Rate 15 15 Respiratory Effort Normal Non-Labored Respiratory Depth Normal Respiratory Pattern Normal Blood Pressure 94/61 Blood Pressure Mean 72 Blood Pressure Source Monitor Blood Pressure Position Semi-Fowlers Blood Pressure Location Left Arm Pulse Ox 94 Oxygen Delivery Method Room Air Room Air 07/20/22 05:11 Temperature 98.2 F Temperature Source Oral Pulse Rate 77 Pulse Strength Respiratory Rate 15 Respiratory Effort Respiratory Depth Respiratory Pattern Blood Pressure 95/64 Blood Pressure Mean 74 Blood Pressure Source Monitor Blood Pressure Position Semi-Fowlers Blood Pressure Location Left Arm Pulse Ox 92 Oxygen Delivery Method Room Air Weight Weight: 140 lb 10.479 oz Body Mass Index (BMI) 22.6 Physical Exam Narrative General -A&Ox3, NAD, appears stated age. Vital signs stable, afebrile. Respiratory -normal work of breathing, no intercostal retractions. CV -pulses regular, brisk capillary refill ?4 limbs. Abdomen-soft, nontender, nondistended. No guarding, rigidity, rebound tendern ess. Musculoskeletal/neurologic -full range of motion nontender throughout bilateral upper extremities, left lower extremity with full sensation and strength in all dermatomes and myotomes. No midline cervical tenderness. Right lower extremity-shortened, abducted and externally rotated. Pain with logroll of the right lower extremity. Nontender throughout the right knee femoral shaft, tibial shaft and right foot/ankle. Brisk capillary refill. Sensation intact light touch L3-S1 dermatomes. DF, PF, EHL intact. DP, PT 2+. Pelvis is stable, nontender. Skin is intact without lacerations, abrasions. No ecchymosis noted. Lab / Micro Data Result Diagrams: 07/19/22 18:26 07/19/22 18:26 Labs: Laboratory Results - last 24 hr 07/19/22 18:26: WBC 10.2, RBC 4.72, Hgb 13.2, Hct 41.4, MCV 87.7, MCH 28.0, MCHC 31.9 L, RDW Std Deviation 43.8, RDW Coeff of Maldonado 13.5, Plt Count 273, MPV 10.7, Immature Gran % (Auto) 0.800, Neut % (Auto) 82.1 H, Lymph % (Auto) 10.7 L, [place] % (Auto) 5.3, Eos % (Auto) 0.8, Baso % (Auto) 0.3, Absolute Neuts (auto) 8.3 H, Absolute Lymphs (auto) 1.09, Nucleated RBC % 0 07/19/22 18:26: PT 14.1, INR 1.1, APTT 26.8 07/19/22 18:26: Sodium 141, Potassium 3.6, Chloride 106, Carbon Dioxide 26.0, Anion Gap 9, BUN 27 H, Creatinine 1.04 H, Estim Creat Clear Calc 47.12, Est GFR (MDRD) Af Amer 67, Est GFR (MDRD) Non-Af 56 L, BUN/Creatinine Ratio 26.0 H, Glucose 106, Calcium 10.0, Total Bilirubin 1.20 H, AST 32, ALT 29, Alkaline Phosphatase 115, Total Protein 8.4 H, Albumin 4.1, Globulin 4.3 H, Album in/Globulin Ratio 1.0 07/19/22 18:26: Vitamin D 25-Hydroxy 84.7 07/19/22 18:26: Blood Type O POSITIVE, Antibody Screen NEGATIVE Radiology Impression Hip X-Ray 07/19/22 18:10 IMPRESSION: Acute impacted fracture the subcapital femoral neck. Electronically Signed: Julito Santana MD at 18:27 EST , Chest X-Ray 07/19/22 19:00 IMPRESSION: No active disease. Electronically Signed: Julito Santana MD at 19:29 EST , Assessment & Plan Assessment/Plan (1) Fracture of right hip: PLAN: Patient sustained a displaced right femoral neck fracture -Closed, neurovascularly intact -Isolated injury -Recommending surgical intervention in the form of right total hip arthroplasty. We discussed right hip hemiarthroplasty. We discussed the risks and benefits as well as alternatives. Due to her age and functional status, I did recommend a total hip arthroplasty. She agreed and wished to proceed with surgery. Risks include but are not limited to bleeding, infection, loss of life or limb, risk of anesthesia, persistent pain or disability, need for additional surgery, instability, periprosthetic fracture, failure of orthopedic hardware, neurovascular injury, DVT or PE. Patient expressed understanding these risks and wished proceed with surgery. -Maintenance IV fluids, clear liquid diet after midnight n.p.o. at 2 hours prior to surgery -Type and screen -2 g Ancef, TXA on-call to the OR -Bedrest, heel protectors -Plan to proceed with surgery later today when OR becomes available Thank you for this consultation.
[2022-07-20 06:14] LABS: Absolute Lymphocyte Count 1.02 X10^3/uL (0.83-4.51); Absolute Neutrophil Count 5.2 X10^3/uL (2.0-7.7); Basophil# 0.03 X10^3/uL; Basophil% 0.4 % (0-1); Eosinophil# 0.14 X10^3/uL; Hemoglobin 12.7 g/dL (12.0-15.0); Lymphocyte # 1.02 X10^3/ul (0.83-4.51); Lymphocyte % 14.9 % (19-41); Mean Corp Hgb Conc 31.8 g/dL (32-36); Mean Corpuscular Hgb 28.6 pg (27.0-32.0); Mean Corpuscular Volume 90.1 fL (81-99); Monocyte# 0.39 X10^3/uL; Monocyte% 5.7 % (0-10); NRBC Flagged by Analyzer 0 % (0-5); Neutrophil # 5.23 X10^3/uL (2.7-7.7); Neutrophil % 76.6 % (47-70); Platelet Count 197 K/mm3 (150-450); RBC Distribution Width CV 13.6 % (11.6-14.6); RBC Distribution Width SD 45.1 fl (35.1-43.9); Red Blood Count 4.44 M/mm3 (4.2-5.4); White Blood Count 6.8 K/mm3 (4.4-11.0)
[2022-07-20 06:42] LABS: ALB/GLOB Ratio 0.9 RATIO (0.9-2.4); AST(SGOT) 29 U/L (15-37); Alanine Aminotransfer ALT/SGPT 25 U/L (13-56); Albumin, Serum 3.6 g/dL (3.2-5.0); Alkaline Phosphatase 102 U/L (45-117); Anion Gap 5 (5-15); BUN 24 mg/dL (7-18); BUN/Creat Ratio 27.4 RATIO (10-20); Calcium,Total 8.5 mg/dL (8.5-10.1); Chloride 107 mmol/L (98-107); Creatinine, Serum 0.88 mg/dL (0.55-1.02); EST Glomerular Filtration Rate 68 mL/min (>60); Est Glom Filt Rate - Afr Amer 82 mL/min (>60); Estimated Creatinine Clearance 55.69 ml/min; Glucose 111 mg/dL (74-106); Potassium 3.9 mmol/L (3.5-5.1); Protein, Total 7.6 g/dL (6.4-8.2); Sodium Level 138 mmol/L (136-145)
[2022-07-20] MEDS: Morphine 2 MG/ML Syringe IV ×3 (08:07→17:20)
--- NOTE | 2022-07-20 13:40 | CASEMGMT ---
HOMERO PEÑA Assessment: Face to Face with pt for initial transition planning/care coordination assessment. RN MARIANA introduced self and role at [facility], pt voices understanding and consents to assessment. Pt is A/O x4 and answers all questions appropriately at this time. Pt lying in bed in no distress. Care providers, pharmacy, and demographics verified/updated. Admitting Dx: hip fracture PCP:Sowmya Specialists:Pt denies Preferred Pharmacy: [facility] [place] Insurance: [employer] [facility] Prescription Benefit: yes LNOK: Danielisidrakatelyn Claudia, friend Living Arrangements: Pt lives alone in a single story house with no steps to enter. Pt reports she was I in ADL's prior and denies concerns at home. Transportation: Pt drives self and denies concerns with transportation. Pt friend Matilde will transport pt post surgery. DME/HHC/SNF: Pt has a FWW, cane, w/c at home but does not use any AD. Pt denies hx of HHC or SNF stays. Pt states no concerns with going home at time of dc. She would like to return home if able. Discussed that after surgery will see how pt does with therapy and what recommendations are made for her. Pt is agreeable to this. Pt states no further concerns/needs. CM to follow. Advised pt to ask CM if any further question/concerns/needs arise, voices understanding. Pt Goal: Home Plan: TBD pending surgery and therapy evals.
--- NOTE | 2022-07-20 15:45 | CASEMGMT ---
social Work Per bedside nurse, pt states she does have a living will and health care POA naming Laura Stratton. Pt is aware documents are not on file at [facility]. KEVIN Chong
--- NOTE | 2022-07-20 16:19 | PN.HOSP_ITS ---
Subjective Subjective Patient still complaining of right hip pain. Suffered mechanical fall resulting in right hip fracture. OR later today. Objective Data Objective Data Vital Signs: Vital Signs Temp Pulse Resp BP Pulse Ox O2 Del Method O2 Flow Rate 98.2 F 80 18 148/88 H 93 Room Air 2 07/20/22 11:50 07/20/22 11:50 07/20/22 11:50 07/20/22 11:50 07/20/22 11:50 07/20/22 14:59 07/20/22 11:50 Oxygen Flow Rate (L/min) 2 Oxygen Delivery Method Room Air Weight: 63.8 kg Body Mass Index (BMI) 22.6 Intake & Output: Intake and Output for Last 24 Hours 07/18/22 07/19/22 07/20/22 23:59 23:59 23:59 Intake Total 1261.67 / 1261.67 Output Total 200 / 200 Balance 1061.67 / 1061.67 Lab / Micro Data Result Diagrams: 07/20/22 05:09 07/20/22 05:09 Labs: Laboratory Results - last 24 hr 07/19/22 18:26: WBC 10.2, RBC 4.72, Hgb 13.2, Hct 41.4, MCV 87.7, MCH 28.0, MCHC 31.9 L, RDW Std Deviation 43.8, RDW Coeff of Maldonado 13.5, Plt Count 273, MPV 10.7, Immature Gran % (Auto) 0.800, Neut % (Auto) 82.1 H, Lymph % (Auto) 10.7 L, [place] % (Auto) 5.3, Eos % (Auto) 0.8, Baso % (Auto) 0.3, Absolute Neuts (auto) 8.3 H, Absolute Lymphs (auto) 1.09, Nucleated RBC % 0 07/19/22 18:26: PT 14.1, INR 1.1, APTT 26.8 07/19/22 18:26: Sodium 141, Potassium 3.6, Chloride 106, Carbon Dioxide 26.0, Anion Gap 9, BUN 27 H, Creatinine 1.04 H, Estim Creat Clear Calc 47.12, Est GFR (MDRD) Af Amer 67, Est GFR (MDRD) Non-Af 56 L, BUN/Creatinine Ratio 26.0 H, Glucose 106, Calcium 10.0, Total Bilirubin 1.20 H, AST 32, ALT 29, Alkaline Phosphatase 115, Total Protein 8.4 H, Albumin 4.1, Globulin 4.3 H, Albumin/Globulin Ratio 1.0 07/19/22 18:26: Vitamin D 25-Hydroxy 84.7 07/19/22 18:26: Blood Type O POSITIVE, Antibody Screen NEGATIVE 07/20/22 05:09: WBC 6.8, RBC 4.44, Hgb 12.7, Hct 40.0, MCV 90.1, MCH 28.6, MCHC 31.8 L, RDW Std Deviation 45.1 H, RDW Coeff of Maldonado 13.6, Plt Count 197, MPV 11.0, Immature Gran % (Auto) 0.400, Neut % (Auto) 76.6 H, Lymph % (Auto) 14.9 L, [place] % (Auto) 5.7, Eos % (Auto) 2.0, Baso % (Auto) 0.4, Absolute Neuts (auto) 5.2, Absolute Lymphs (auto) 1.02, Nucleated RBC % 0 07/20/22 05:09: Sodium 138, Potassium 3.9, Chloride 107, Carbon Dioxide 26.0, Anion Gap 5, BUN 24 H, Creatinine 0.88, Estim Creat Clear Calc 55.69, Est GFR (MDRD) Af Amer 82, Est GFR (MDRD) Non-Af 68, BUN/Creatinine Ratio 27.4 H, Glucose 111 H, Calcium 8.5, Total Bilirubin 2.00 H, AST 29, ALT 25, Alkaline Phosphatase 102, Total Protein 7.6, Albumin 3.6, Globulin 4.0, Albumin/Globulin Ratio 0.9 Radiography Diagnostic Testing: Radiology Impression Hip X-Ray 07/19/22 18:10 IMPRESSION: Acute impacted fracture the subcapital femoral neck. Electronically Signed: Julito Santana MD at 18:27 EST , Chest X-Ray 07/19/22 19:00 IMPRESSION: No active disease. Electronically Signed: Julito Santana MD at 19:29 EST , Physical Exam Const alert, oriented x3, healthy appearing and well nourished Constitutional Narrative: Older white female lying in bed, friend at bedside, patient is anxious but very pleasant HEENT head/scalp atraumatic and moist oral mucous membranes Head and Scalp: normocephalic Resp normal respiratory effort, no retractions, no use of accessory muscles and clear to auscultation bilaterally Auscultation: Negative for crackles, rhonchi or wheezes Cardio regular rate, regular rhythm, S1 normal heart sound, S2 normal heart sound, no murmurs, no rub, no gallops and no clicks GI normal to inspection, nondistended, normoactive bowel sounds, soft to palpation and non-tender Extremity no clubbing, cyanosis or edema Extremity Narrative: Right lower extremity is shortened and externally rotated Neuro oriented x3 Neuro Narrative: Decreased ability move right lower extremity secondary to pain at the hip but otherwise movement is symmetrical without focal deficits Speech: speech normal Psych Psych Narrative: Pleasant Mood & Affect: anxious Assessment & Plan Assessment/Plan (1) Fracture of right hip: PLAN: Plan Right impacted subcapital fracture of the femoral neck -OR later today -DVT prophylaxis per primary service -Continue pain medications as needed -PT/OT postoperatively -Vitamin D level is within normal limits -Chest x-ray and EKG unremarkable -Patient may need placement and would prefer TCU or rehab but may be able to go home depending on progress with therapy services after surgery Fall -Fall was mechanical -PT/OT following surgery DVT prophylaxis -Per primary service CODE STATUS -Full code Charges/Coding Visit Charges Inpatient E&M: 22254 Subs Hosp L2
--- NOTE | 2022-07-20 16:30 | HIP_PTH ---
PATIENT: HARVEY PABLO LOC: [facility] U#:[id number] AGE/SX: 72/F ROOM: [facility] RE07/19/[address]: Dr. Loren Davis MD : 1950 BED: 1 DIS: 07/25/2022 SPEC #: [id number] RECD: 07/21/22 08:43 STATUS: DANIELE JARAMaria Elena #: [id number] KANDACE: 07/20/22 16:[address]: Claudio Correa DEPT: SURGICAL PATHOLOGY RECD BY: Herminia Vega ENTERED: 07/21/22 09:17 SP TYPE: TOTAL HIP OTHR DR: MD Dr. Karen Rey DO Dr. Nicholas F Kotsonis, MD Tissues: Hip, NOS Procedures: Decalcification bone/plaque Surgery Specimen Level IV HEADER OPERATION: Total hip arthroplasty PRE-OP DIAGNOSIS: Fracture of right hip TISSUE SUBMITTED: Right femoral head MICROSCOPIC DIAGNOSIS Right femoral head, total hip arthroplasty/resection: Femoral head with focal area of hemorrhage, clinically fracture of right hip. DAVID:joanne 07/27/2022 MICROSCOPIC DESCRIPTION Slides are reviewed. GROSS DESCRIPTION Received is one container labeled with the patient's name and designated right femoral head. The specimen consists of a aguila femoral head measuring 4.5 x 4.5 x 4 cm. The articular surface is smooth. Resection margin is irregular and hemorrhagic. Also present in the specimen container are multiple detached pieces of bone reamings and pieces of bone measuring in aggregate 9 x 7 x 2.5 cm. No soft tissue is identified. Job Forwarder sections are submitted in three cassettes after decalcification as follows: 1 - detached pieces of bone, 2 & 3 - femoral head after decalcification. / Andrew 07/21/2022 TC:5 CPT: 35948, 52160
[2022-07-20] MEDS: Lactated Ringers 1,000 ML 15 ML IV ×2 (18:05→21:36)
[2022-07-20] MEDS: Cefazolin 2 GM in 0.9% Normal Saline 100 ML IV ×2 (18:52→22:52)
--- NOTE | 2022-07-20 21:25 | RAD_ITS ---
INDICATION: Post Op -- AP both hips on single ericka/lateral of op hip PACU EXAMINATION/TECHNIQUE: X-RAY - RIGHT XR Hip Unilateral with Pelvis when performed; 2-3 Views 2 VIEWS COMPARISON: None. RAD/Hip Min 2 Views (Portable) IMPRESSION: Right hip total arthroplasty in anatomic alignment. Expected postoperative soft tissue gas. Electronically Signed: Alan Wilson MD at 21:40 EST ,
[2022-07-20] MEDS: Senna/Docusate Sodium 1 Tablet 2 TABLET PO (22:52)
--- NOTE | 2022-07-20 22:56 | OP.PCM_ITS ---
Report of Operation Date of Procedure: 07/20/22 Description of Surgical Findings:: Preoperative diagnosis: Right displaced femoral neck fracture Postoperative diagnosis: Right displaced femoral neck fracture Procedure: Right total hip arthroplasty Surgeon: Claudio Correa DO Senior Product Marketing Manager: MICHA Nunes Anesthesia: General endotracheal Anesthesiologist: Dr. Giron Complications: None Drains: None Estimated blood loss: 200 cc Urinary output: None recorded IV fluids: 1300 cc crystalloid Specimens: Right femoral head Surgical implants: Johana Accolade two 127 degree neck angle hip stem size #6, Biolox ceramic V 40 femoral head 36 mm diameter neck length +0, Trident X3 10 degree polyethylene insert 36 mm inner diameter, 6.5 mm low-profile hex screw length 25 mm, Trident 2 TriTanium cluster hole acetabular shell 52 mm outer diameter Indications: HARVEY PABLO, is a 72 F who presented to [facility] after a fall on uneven concrete 07/19/2022. Patient landed on her right side. Patient is a community ambulator without assistive device. Denies antecedent right hip or groin pain. Reports head injury but no loss of consciousness, no confusion, no headache, no vision or auditory changes. Denies neck pain or neck injury. Denies fevers, chills, nausea vomiting, chest pain or shortness of breath. Patient was evaluated by emergency room physician date of injury and x- rays revealed a displaced right femoral neck fracture. I was called from emergency department. I recommended patient be admitted on the service of the hospitalist and surgical intervention. I saw the patient in consultation this morning. I recommend surgical intervention in the form of right total hip arthroplasty given her age and high functional status. I reviewed the procedure with the patient, its risk, benefits, alternatives. Risks included but were not limited to bleeding, infection, loss of life or limb, risk of anesthesia, neurovascular injury, persistent pain, instability, need for additional surgery, failure of orthopedic hardware, loosening, osteolysis, need for assistive devices long-term. Patient expressed understanding wish to proceed with surgery. Description of procedure: Prior to the procedure, patient was brought to the preoperative holding area where patient was identified by name, medical record number and date of . I confirmed the side, site, operation to be performed with the patient. Informed consent was confirmed, All questions were answered to patient satisfaction. The operative extremity was marked. She was also seen by anesthesia staff and anesthesia consent obtained. A spinal anesthetic was administered in the preoperative holding area by Dr. Giron. At time of the operative procedure, pt was brought to the operative suite. MAC anesthesia was induced on the hospital bed.. After adequate anesthesia, patient was transferred to a standard operating table. She was then positioned in the lateral decubitus position with the right side up and held in position by [employer] hip positioner system. All bony prominences were well-padded. A axillary roll was placed under the patient's left axilla. Peroneal nerve was free with a blanket on the nonoperative extremity. Leg lengths were reproduced from patient's position when she was supine. The right lower extremity was then prepped and draped in normal, sterile orthopedic fashion. We performed a timeout with all parties in attendance in agreement with the side, site, and ope ration to be performed. No concerns were voiced and would like to proceed. 2 g Ancef, 1 g IV TXA was administered prior to incision by anesthesia staff. I first marked an incision along the lateral aspect of the hip centered over the greater trochanteric tip. In standard posterior approach, a curvilinear incision was made above the trochanter. An approximately 15 cm incision was made. Skin was sharply incised with a 10 blade scalpel carried deep through subcutaneous layers to the level of the IT band. Gelpi retractors were then placed. A Reed was used to expose the IT band. Bovie cautery was then used for hemostasis and then to open the IT band. This was opened in line with the incision. A Charnley retractor was then placed. Sciatic nerve was free. The trochanteric bursa was then debrided. This identified the short external rotators after internal rotation of the hip. The fracture site was easily identified at this point. Short external rotators were taken down and tagged for later repair. Hip capsule was also tagged for repair with a stay suture. We then freshened the neck cut with a sagittal saw. Anterior and posterior acetabular retractors were placed to gain access to the femoral head. A corkscrew was used to remove the head. Any remaining debris was debrided from the acetabulum. We then placed the femoral head on the back table for measurement. I then proceeded with preparation of the acetabulum. Acetabular labrum was removed sharply. Retractors were placed along the anterior posterior acetabulum. I then proceeded with sequential reaming of the acetabulum to a final diameter of 52 mm. I impacted the 52 mm acetabular shell in standard fashion with excellent rim fit. A single acetabular screw was placed in the superior aspect of the acetabulum in standard fashion. A 10 degree posterior lipped liner was placed and impacted per manual machinist recommendations. I then turned my attention to the femur. Box chisel was then utilized to gain access to the femoral canal. Canal finder was placed. Sequential broaches were used and press-fit manner. A final size 6 achieved excellent vertical and rotational stability. We then trialed with a standard and subsequently high offset stem. I offset did achieve excellent stability and reproduction of abductor tension. Leg lengths appeared appropriate with a size 0 neck length. Trials were then removed. We copiously irrigated the wound with normal saline solution and Betadine solution. A size 6 stem was then impacted with excellent fixation. Final head was then impacted over the Foote taper neck. Final reduction was performed. A posterior capsular and short external rotator repair was performed with #2 Ethibond suture. IT band was closed watertight with #1 strata fix suture. Deeper fascial layers were closed with 0 Vicryl suture in interrupted fashion. Subcutaneous layers were reapproximated with 2-0 Vicryl suture and skin reapproximated with subcuticular 4?0 V-Loc Monocryl suture. A silver dressing was applied. Patient tolerated procedure well without complication. She was positioned back in the supine position on her hospital bed and subsequently extubated safely. She was transferred to PACU in stable condition. Blankets were placed between the patient's leg to be present while she is in bed. Post Operative Plan: Weightbearing: Weightbearing as tolerated right lower extremity, posterior hip precautions. Blankets between legs while in bed Antibiotics: Ancef every 8 hours x 3 doses DVT Prophylaxis: Lovenox 40 mg subcutaneously daily to start postoperative day #1 and continued for 28 days Craven: None Dressing: Maintain silver dressing x7 days X-Rays: PACU x-rays were reviewed demonstrated well-positioned right total hip arthroplasty implant. Follow-up 2-week x-rays in the office. Follow-up: 2 weeks in my office for wound check
[2022-07-21] VITALS (9 sets, daily range): BP systolic 92–120; BP diastolic 57–73; PULSE 79–108; RESP 16–20; TEMP 36.7–38.1; O2SAT 93–98
[2022-07-21] MEDS: Cefazolin 2 GM in 0.9% Normal Saline 100 ML IV (05:22)
--- NOTE | 2022-07-21 07:52 | PN.ORTHO_ITS ---
Subjective Subjective Patient seen and examined. Denies any new complaints. Pain is much improved than prior to surgery. Up with nursing twice. Denies fevers, chills, nausea vomiting, chest pain or shortness of breath. Patient is eager to go home. Objective Data Objective Data Vital Signs: Vital Signs Temp Pulse Resp BP Pulse Ox O2 Del Method O2 Flow Rate 98.2 F 81 18 101/73 98 Nasal Cannula 3 07/21/22 01:45 07/21/22 01:45 07/21/22 01:45 07/21/22 01:45 07/21/22 01:45 07/21/22 01:45 07/21/22 01:45 Oxygen Flow Rate (L/min) 3 Oxygen Delivery Method Nasal Cannula Weight: 140 lb 10.479 oz Body Mass Index (BMI) 22.6 Intake & Output: Intake and Output for Last 24 Hours 07/19/22 07/20/22 07/21/22 23:59 23:59 23:59 Intake Total 3436.67 / 3436.67 1320 / 1320 Output Total 500 / 500 1500 / 1500 Balance 2936.67 / 2936.67 -180 / -180 Lab / Micro Data Result Diagrams: 07/20/22 05:09 07/20/22 05:09 Radiography Diagnostic Testing: Radiology Impression Hip X-Ray 07/20/22 21:25 IMPRESSION: Right hip total arthroplasty in anatomic alignment. Expected postoperative soft tissue gas. Electronically Signed: Alan Wilson MD at 21:40 EST Reading Location ID and State: [facility] / [place] Tel , Service support , Physical Exam Narrative General - A&Ox3, NAD. VSS/AF Right lower extremity -incisional dressing C/D/I. SILT Sural, Saphenous, SPN, DPN, Tibial N. distributions. DP, PT 2+. BCR. DF, PF, EHL /5. No calf TTP. Assessment & Plan Assessment/Plan (1) Fracture of right hip: PLAN: POD#1 s/p right JAVED - Pain control - Medicine following for medical management - PT/UI-bjmpsc-mkhk as tolerated right lower extremity with posterior precautions - DVT PPX -Lovenox 40 mg subcutaneously daily x20 days, SCDs, ABENA de leon, early mobilization -Concern for patient going home especially today as she lives alone. We will mobilize with therapy today and evaluate depending on her clinical status. - Case management - D/C planning
[2022-07-21] MEDS: Senna/Docusate Sodium 1 Tablet 2 TABLET PO ×2 (08:05→20:41)
[2022-07-21] MEDS: Aspirin E.C. 81 MG Tablet PO (08:05)
[2022-07-21 08:06] LABS: Absolute Lymphocyte Count 0.66 X10^3/uL (0.83-4.51); Absolute Neutrophil Count 4.9 X10^3/uL (2.0-7.7); Basophil# 0.02 X10^3/uL; Basophil% 0.3 % (0-1); Eosinophil# 0.12 X10^3/uL; Eosinophils% 1.9 % (0-5); Hematocrit 31.7 % (37-47); Hemoglobin 9.8 g/dL (12.0-15.0); Lymphocyte # 0.66 X10^3/ul (0.83-4.51); Lymphocyte % 10.7 % (19-41); Mean Corp Hgb Conc 30.9 g/dL (32-36); Mean Corpuscular Hgb 27.8 pg (27.0-32.0); Mean Corpuscular Volume 90.1 fL (81-99); Mean Platelet Vol. 10.7 fl (6.2-12.0); Monocyte# 0.41 X10^3/uL; Monocyte% 6.7 % (0-10); NRBC Flagged by Analyzer 0 % (0-5); Neutrophil # 4.93 X10^3/uL (2.7-7.7); Neutrophil % 80.1 % (47-70); Platelet Count 145 K/mm3 (150-450); RBC Distribution Width CV 13.5 % (11.6-14.6); RBC Distribution Width SD 44.6 fl (35.1-43.9); Red Blood Count 3.52 M/mm3 (4.2-5.4); White Blood Count 6.2 K/mm3 (4.4-11.0)
[2022-07-21] MEDS: Calcium Carbonate 500 MG Tablet PO ×3 (08:07→17:29)
[2022-07-21 08:24] LABS: Anion Gap 5 (5-15); BUN 21 mg/dL (7-18); BUN/Creat Ratio 21.5 RATIO (10-20); Chloride 108 mmol/L (98-107); Creatinine, Serum 0.98 mg/dL (0.55-1.02); EST Glomerular Filtration Rate 60 mL/min (>60); Est Glom Filt Rate - Afr Amer 72 mL/min (>60); Glucose 106 mg/dL (74-106); Potassium 3.8 mmol/L (3.5-5.1); Sodium Level 139 mmol/L (136-145)
[2022-07-21] MEDS: 0.9% Normal Saline 1,000 ML 100 ML IV ×2 (09:17→18:15)
[2022-07-21] MEDS: oxyCODONE 5 MG Tablet PO ×3 (09:18→20:41)
[2022-07-21] MEDS: Enoxaparin 40 MG/0.4 ML Syringe SC (09:53)
--- NOTE | 2022-07-21 09:55 | CASEMGMT ---
Addendum entered by Anamaria Salmeron 07/21/22 15:45: Received acceptance from Kiki at [facility] for SOC tomorrow. Pt nurse states pt will not dc today now as she has fever. TC back to Kiki to make aware. Green sheet on chart for dc. Pt aware of acceptance. Addendum entered by Anamaria Salmeron 07/21/22 15:25: TC to [facility] pharmacy, pt cost for lovenox is $11.91. Addendum entered by Anamaria Salmeron 07/21/22 14:38: TC to [facility], they do not have record of the referral made. Referral given, Kiki will review and call this RN CM back with answer. Addendum entered by Anamaria Salmeron 07/21/22 12:02: RN MARIANA in to pt room, pt states she has chosen [facility] and does not have a 2nd or 3rd choice. Made her aware that this RN CM will call them and if another choice is needed she will be notified. TC to [facility], left message on Kiki's line with referral. Will await acceptance. Addendum entered by Anamaria Salmeron 07/21/22 10:40: Patient was provided a list of [facility] providers including quality and resource use data and consistent with the patient?s preferred geographic region, medical needs, and insurance network were provided from the [employer] Guide. Pt to review and RN CM to check back for choices. Pt is aware that lovenox will be ordered for her and need to be given daily. Pt states that she has done this herself in the past and has no issues with it. Original Note: RN MARIANA discussed pt with PT. RN CM in to pt room, pt states she wants to go home. She states she recently had an ankle fracture and she has inconvenienced many people and she wants to just go home and care for herself. She does want HHC vs OP therapy. Pt states she can manage at home and has someone who can get groceries for her. Discussed other options for dc as well but pt adamantly declined.
--- NOTE | 2022-07-21 13:16 | NURSING ---
Dr. Correa notified that iv was pulled out when nurse entered room, has one more dose of cefazolin, he said he would change it to po keflex.
--- NOTE | 2022-07-21 13:59 | DS.PCM_ITS ---
Providers Date of Admission: 07/19/22 Date of Discharge: 07/21/22 Primary Care Physician: Dr. Michelle Deng MD Consultations 07/20/22 08:38 Consult: Orthopedics Routine Consulting Provider: Claudio Correa Reason for Consult: right hip fracture EMERGENT Consult: No MD Notified: Yes Date Notified: 07/20/22 Time Notified: 07:00 Method of Notification: Text Reason For Visit: HIP FRACTURE Diagnosis Discharge Diagnosis (1) Fracture of right hip: Status: Acute Code(s): S72.001A - Fracture of unspecified part of neck of right femur, initial encounter for closed fracture Medications at Discharge Home Medications aspirin 81 mg tablet,delayed release 81 mg PO DAILY [facility] 07/19/22 cholecalciferol (vitamin D3) 25 mcg (1,000 unit) capsule (Vitamin D3) 25 mcg PO DAILY supplement 07/19/22 multivitamin 1 tab PO DAILY supplement 07/19/22 enoxaparin 40 mg/0.4 mL subcutaneous syringe 40 mg (0.4 mL) subcut DAILY 28 days #11.2 mL 07/21/22 oxycodone 5 mg tablet 5 mg PO Q4H PRN PRN Pain Score 6-10 7 days #42 tabs 07/21/22 sennosides 8.6 mg-docusate sodium 50 mg tablet (Stool Softener-Stimulant Laxative) 2 tab PO BID #60 tabs 07/21/22 Hospital Course Operations - (Right total hip arthroplasty) Procedures EKG and - (Chest x-ray) Summary of Care Provided Minutes Spent on Discharge: 28 Hospital Course: Ms Cross is a 72-year-old white female who presented to the emergency department at [facility] on 07/19/2022 after sustaining a mechanical fall on uneven concrete and experiencing acute right hip pain following. X-ray of hip in the emergency department showed a acute impacted fracture that was subcapital in the right femoral neck. She was evaluated by orthopedic surgery and taken to the operating room on 07/20/2022 at which time she had an uncomplicated right total hip arthroplasty performed. Her vitamin D level was assessed and found to be normal. Patient did well postoperatively with physical and Occupational Therapy and they felt she was stable to go home with home health care. Her vitals and laboratory data were stable. She is weightbearing as tolerated in the right lower extremity with posterior hip precautions. All have been reviewed with her by physical therapy. She is to place blankets between her legs while in bed. She will be placed on Lovenox subcu postoperatively for 28 days. She is to maintain the silver dressing x7 days and is okay to shower postop day [address] dressing in place. She is to follow-up with Dr. Correa in his office in 2 weeks for repeat x-rays and a wound check. She was able to be discharged home in stable condition with prescription for pain medication as well as Lovenox and home health care has been arranged. Discharge diagnoses: Acute right hip fracture Mechanical fall Right total hip arthroplasty Physical Exam Const alert, oriented x3, no apparent distress, no limitations, healthy appearing and well nourished Constitutional Narrative: Older white female sitting up in bed, nursing at bedside, patient much less anxious today, therapy arrives while I am examining patient to work with her General Appearance: cooperative, comfortable, well kempt and well developed Orientation / Consciousness: awake, oriented to person, oriented to place and oriented to time Exam Limitations: no limitations HEENT normocephalic, head/scalp atraumatic, hearing grossly normal bilaterally and moist oral mucous membranes HEENT Narrative: Mallampati 2, no thrush Resp normal respiratory effort, no retractions, no use of accessory muscles and clear to auscultation bilaterally Auscultation: Negative for crackles, rhonchi or wheezes Cardio regular rate, regular rhythm, S1 normal heart sound, S2 normal heart sound, no murmurs, no rub, no gallops and no clicks GI normal to inspection, nondistended, normoactive bowel sounds, soft to palpation and non-tender Extremity no clubbing, cyanosis or edema Skin Skin Narrative: Postoperative dressing on the right hip is clean and dry, no ecchymosis Neuro oriented x3, CN's II-XII intact bilaterally and no focal motor deficits Neuro Narrative: Decreased ability move right lower extremity secondary to pain at the hip but otherwise movement is symmetrical without focal deficits but improved since yesterday now that hip is repaired Speech: speech normal Psych affect normal Psych Narrative: Pleasant Mood & Affect: anxious Weight / BMI Weight Weight: 63.8 kg Body Mass Index (BMI) 22.6 ABG / Lab / Microbiology Data Result Diagrams: 07/21/22 07:57 07/21/22 07:57 Laboratory: Laboratory Results - last 24 hr 07/21/22 07:57: WBC 6.2, RBC 3.52 L, Hgb 9.8 L, Hct 31.7 L, MCV 90.1, MCH 27.8, MCHC 30.9 L, RDW Std Deviation 44.6 H, RDW Coeff of Maldonado 13.5, Plt Count 145 L, MPV 10.7, Immature Gran % (Auto) 0.300, Neut % (Auto) 80.1 H, Lymph % (Auto) 10.7 L, [place] % (Auto) 6.7, Eos % (Auto) 1.9, Baso % (Auto) 0.3, Absolute Neuts (auto) 4.9, Absolute Lymphs (auto) 0.66 L, Nucleated RBC % 0 07/21/22 07:57: Sodium 139, Potassium 3.8, Chloride 108 H, Carbon Dioxide 26.0, Anion Gap 5, BUN 21 H, Creatinine 0.98, Estim Creat Clear Calc 50.00, Est GFR (MDRD) Af Amer 72, Est GFR (MDRD) Non-Af 60, BUN/Creatinine Ratio 21.5 H, Glucose 106, Calcium 8.0 L Radiography Diagnostic Testing: Radiology Impression Hip X-Ray 07/20/22 21:25 IMPRESSION: Right hip total arthroplasty in anatomic alignment. Expected postoperative soft tissue gas. Electronically Signed: Alan Wilson MD at 21:40 EST Reading Location ID and State: [address] [place] [address] Tel , Service support , D/C Instructions Discharge Diet: No restrictions Discharge Activity: May Not Drive and Use Walker Weight Bearing Status: Weight bearing as tolerated Keep extremity elevated above heart level: Operative Extremity Call your doctor if your incision/area has: Continuous Slow Oozing, Sudden In creased Bleeding, Increased Pain/ Swelling, Increased Redness, Foul Smelling Discharge and Swelling at the incision site Call your doctor if you observe: Fever of 101 or Higher Remove Dressing in: 6 days Additional Dressing/Incision Instructions: Okay to shower postop day 2 Additional Instructions: Please maintain posterior hip precautions as described by physical therapy at the time of discharge Meaningful Use Info Meaningful Use Diagnoses (Choose all that apply): None applicable Discharge Plan Admission Admit Date/Time: 07/19/22 19:40 Primary Reason for Your Visit: Right hip pain Attending Provider: Karen Barbosa Primary Care Provider: Michelle Deng Consulting Providers: Claudio Wolf ; Claudio Correa Instructions Additional Instructions / Restrictions: 1. Please follow posterior hip replacement precautions as described by physical therapy 2. While in bed please utilize a blanket between your knees to maintain hip precautions 3. Okay to shower postop day [address] 4. Remove dressing on postop day 7 5. Okay to shower after dressing removal but avoid soaking in a tub until permitted by orthopedic surgery 6. Please utilize a walker at all times until released by physical therapy Discharge Orders/Prescriptions Prescriptions: New oxycodone 5 mg Tablet 5 mg PO Q4H PRN PRN (Reason: Pain Score 6-10) 7 Days Qty: 42 0RF sennosides-docusate sodium [Stool Softener-Stimulant Laxat] 8.6-50 mg Tablet 2 tab PO BID Qty: 60 0RF enoxaparin 40 mg/0.4 mL syringe 40 mg subcut DAILY 28 Days Qty: 11.2 0RF Continued aspirin 81 mg Tablet,Delayed Release (Dr/Ec) 81 mg PO DAILY multivitamin Tablet 1 tab PO DAILY cholecalciferol (vitamin D3) [Vitamin D3] 25 mcg (1,000 unit) Capsule 25 mcg PO DAILY Referrals / Follow Up: Michelle Deng MD [Primary Care Provider] - Within 2 Weeks Claudio Correa DO [Med Staff - Active Staff] - Within 2 Weeks (Call for appointment) Disposition Disposition (needs filled in before D/C Order can be placed): Home Health Service Charges/Coding Visit Charges Inpatient E&M: 70005 Disch Hosp
[2022-07-21] MEDS: Cephalexin 500 MG Capsule PO (15:38)
--- NOTE | 2022-07-21 15:39 | NURSING ---
Dr. Barbosa notified of vitals, and that pt was 86 % on RA, and 95% on @ l nc. Will not discharge her today, and will enter more orders.
[2022-07-21] MEDS: Acetaminophen 500 MG Tablet 1000 MG PO (16:25)
--- NOTE | 2022-07-21 16:25 | RAD_ITS ---
INDICATION: SOB EXAMINATION/TECHNIQUE: X-RAY - XR Chest 1 View COMPARISON: 07/19/2022 FINDINGS: LINES/DEVICES: None. LUNGS: Mild left lung base atelectasis. No consolidation, edema or effusion. No pneumothorax. MEDIASTINUM AND CARDIOVASCULAR STRUCTURES: Cardiac silhouette not enlarged. Central airways and mediastinal contour are unremarkable. RAD/Chest 1 View (Portable) IMPRESSION: Mild left lung base atelectasis. Electronically Signed: Alan Wilson MD at 16:38 EST ,
[2022-07-21 16:35] LABS: Bacteria 0 SEEN /hpf (None Seen); Mucous, Urine 0 SEEN /hpf (<or=2+); Red Blood Cells-Urine 0 SEEN /hpf (0-5)
[2022-07-21 16:40] LABS: Color, Urine Yellow (Yellow); Glucose, Dipstick Normal (Normal); Ketone-Dipstick 5 mg/dl (Negative); Leukocyte Esterase-Dipstick 25 /ul (Negative); Nitrite-Dipstick Negative (Negative); Occult Blood-Urine 25 /ul (Negative); Protein-Dipstick 30 mg/dl (Negative); Specific Gravity, Urine 1.025 (1.002-1.030); Urine Bilirubin Dipstick Negative (Negative); Urine Clarity Clear (Clear); Urine Urobilinogen Normal (Normal)
[2022-07-21] MEDS: 0.9% Normal Saline 1,000 ML 999 ML IV (16:45)
[2022-07-21 17:07] LABS: Squamous Epithelial Cells - UA 0-5 SEEN /hpf (5-10); White Blood Cells 0-5 SEEN /hpf (0-5)
[2022-07-21 17:41] LABS: Absolute Lymphocyte Count 0.55 X10^3/uL (0.83-4.51); Absolute Neutrophil Count 5.7 X10^3/uL (2.0-7.7); Basophil# 0.01 X10^3/uL; Basophil% 0.1 % (0-1); Eosinophil# 0.06 X10^3/uL; Eosinophils% 0.9 % (0-5); Hematocrit 30.2 % (37-47); Hemoglobin 9.2 g/dL (12.0-15.0); Lymphocyte # 0.55 X10^3/ul (0.83-4.51); Lymphocyte % 7.9 % (19-41); Mean Corp Hgb Conc 30.5 g/dL (32-36); Mean Corpuscular Hgb 27.5 pg (27.0-32.0); Mean Corpuscular Volume 90.4 fL (81-99); Mean Platelet Vol. 11.3 fl (6.2-12.0); Monocyte# 0.52 X10^3/uL; Monocyte% 7.5 % (0-10); NRBC Flagged by Analyzer 0.3 % (0-5); Neutrophil # 5.74 X10^3/uL (2.7-7.7); Neutrophil % 82.9 % (47-70); POSITIVE DIFFERENTIAL YES; Platelet Count 137 K/mm3 (150-450); RBC Distribution Width CV 13.5 % (11.6-14.6); RBC Distribution Width SD 44.5 fl (35.1-43.9); Red Blood Count 3.34 M/mm3 (4.2-5.4); White Blood Count 6.9 K/mm3 (4.4-11.0)
[2022-07-21 17:42] LABS: Differential Indicated SCAN CRITERIA MET
[2022-07-21 17:59] LABS: Procalcitonin 0.36 ng/mL (0.00-0.09)
[2022-07-21 18:16] LABS: Differential Comment SCANNED
[2022-07-22] VITALS (13 sets, daily range): BP systolic 91–114; BP diastolic 62–75; PULSE 79–149; RESP 18; TEMP 36.8–37.2; O2SAT 88–97
[2022-07-22] MEDS: 0.9% Normal Saline 1,000 ML 100 ML IV (03:19)
[2022-07-22] MEDS: oxyCODONE 5 MG Tablet PO ×2 (03:31→19:28)
[2022-07-22] MEDS: Acetaminophen 500 MG Tablet 1000 MG PO ×3 (03:32→21:26)
[2022-07-22 06:38] LABS: Absolute Lymphocyte Count 0.52 X10^3/uL (0.83-4.51); Absolute Neutrophil Count 5.3 X10^3/uL (2.0-7.7); Basophil# 0.01 X10^3/uL; Basophil% 0.2 % (0-1); Eosinophil# 0.15 X10^3/uL; Eosinophils% 2.3 % (0-5); Hematocrit 26.7 % (37-47); Hemoglobin 8.1 g/dL (12.0-15.0); Lymphocyte # 0.52 X10^3/ul (0.83-4.51); Mean Corp Hgb Conc 30.3 g/dL (32-36); Mean Corpuscular Hgb 27.8 pg (27.0-32.0); Mean Corpuscular Volume 91.8 fL (81-99); Mean Platelet Vol. 11.2 fl (6.2-12.0); Monocyte% 7.7 % (0-10); NRBC Flagged by Analyzer 0 % (0-5); Neutrophil # 5.29 X10^3/uL (2.7-7.7); Neutrophil % 81.5 % (47-70); POSITIVE DIFFERENTIAL YES; Platelet Count 107 K/mm3 (150-450); RBC Distribution Width CV 13.4 % (11.6-14.6); RBC Distribution Width SD 45.3 fl (35.1-43.9); Red Blood Count 2.91 M/mm3 (4.2-5.4); White Blood Count 6.5 K/mm3 (4.4-11.0)
[2022-07-22 06:41] LABS: Differential Indicated SCAN CRITERIA MET
[2022-07-22 06:57] LABS: Differential Comment SCANNED
[2022-07-22 07:10] LABS: Anion Gap 1 (5-15); BUN 19 mg/dL (7-18); BUN/Creat Ratio 24.2 RATIO (10-20); Calcium,Total 7.9 mg/dL (8.5-10.1); Chloride 112 mmol/L (98-107); Creatinine, Serum 0.78 mg/dL (0.55-1.02); EST Glomerular Filtration Rate 77 mL/min (>60); Est Glom Filt Rate - Afr Amer 93 mL/min (>60); Glucose 120 mg/dL (74-106); Magnesium 1.7 mg/dL (1.6-2.6); Phosphorus 1.4 mg/dL (2.5-4.9); Potassium 3.9 mmol/L (3.5-5.1); Sodium Level 140 mmol/L (136-145)
--- NOTE | 2022-07-22 07:19 | CT_ITS ---
STUDY: CTA CHEST REASON FOR EXAM: Female, 72 years old. hypoxia. TOTAL HIP 07/19/22 RADIATION DOSAGE (If Supplied By Facility): CTDIvol = ( 9.86 ) mGy, DLP = ( 254.42 ) mGycm TECHNIQUE: The examination was performed with the intravenous administration of IV 75mL Isovue-370. Post-processing of the angiographic images was performed, with multiplanar reformation and 3D reconstruction. Individualized dose optimization techniques were used for this CT. COMPARISON: None. FINDINGS: Normal enhancement of the main pulmonary artery and right and left pulmonary arteries. Normal enhancement of the bilateral peripheral pulmonary arteries. There is no demonstrated pulmonary embolism. Ascending thoracic aortic aneurysm measuring up to 4.3 cm in AP diameter. There is no demonstrated aortic dissection. Normal heart and pericardium. Normal mediastinum. Normal hilar regions. Normal visualized trachea and bronchi. Left lower lobe infiltrate/atelectasis. Atelectatic changes in both lower lobes. Small left pleural effusion. Normal chest wall structures. Mild compression fracture of T6.. Severe compression fracture of L1 vertebra with retropulsion of the. Mild increased kyphosis. Large partially visualized low-density lesion in the right lobe of the liver extending to the dome measuring about 10 cm likely representing cyst. Additional smaller low-density lesions/cysts partially visualized. CT/CTA Chest W/WO Contrast IMPRESSION: 1. No evidence of pulmonary embolism. 2. Left lower lobe infiltrate/atelectasis and small left pleural effusion. 3. Atelectatic changes bilaterally. 4. Ascending thoracic aortic aneurysm measuring up to 4.3 cm in AP diameter. 5. Large liver cysts. 6. Compression fractures of T6 and L1 vertebrae probably chronic. Electronically Signed: Paco Russo MD at 8:27 EST ,
[2022-07-22] MEDS: Senna/Docusate Sodium 1 Tablet 2 TABLET PO ×2 (09:01→19:27)
[2022-07-22] MEDS: Calcium Carbonate 500 MG Tablet PO ×3 (09:01→16:44)
[2022-07-22] MEDS: Aspirin E.C. 81 MG Tablet PO (09:01)
[2022-07-22] MEDS: Enoxaparin 40 MG/0.4 ML Syringe SC (09:54)
[2022-07-22] MEDS: 0.9% Saline Lock 10 ML Syringe IV ×3 (09:55→23:21)
[2022-07-22 12:27] LABS: Hematocrit 33.3 % (37-47); Hemoglobin 10.1 g/dL (12.0-15.0)
--- NOTE | 2022-07-22 13:29 | PCM.PN.ORT ---
Subjective Subjective Patient seen and examined. Patient reports significant pain in her right hip. Otherwise, patient denies any symptoms. Denies any fevers, chills, nausea vomiting, chest pain or shortness of breath. Patient had a CTA this morning due to continued oxygen requirements and hypoxia. No evidence of PE seen on CTA. Atelectatic changes are noted. Objective Data Objective Data Vital Signs: Vital Signs Temp Pulse Resp BP Pulse Ox O2 Del Method O2 Flow Rate 98.4 F 80 18 91/62 97 Nasal Cannula 2 07/22/22 08:50 07/22/22 08:59 07/22/22 08:50 07/22/22 08:50 07/22/22 08:50 07/22/22 08:59 07/22/22 11:51 Oxygen Flow Rate (L/min) 2 Oxygen Delivery Method Nasal Cannula Weight: 140 lb 10.479 oz Body Mass Index (BMI) 22.6 Intake & Output: Intake and Output for Last 24 Hours 07/20/22 07/21/22 07/22/22 23:59 23:59 23:59 Intake Total 3436.67 / 3436.67 3735 / 3735 2054.00 / 2054.00 Output Total 500 / 500 1500 / 1700 200 / 200 Balance 2936.67 / 2936.67 2235 / 2035 1854.00 / 1854.00 Lab / Micro Data Result Diagrams: 07/22/22 12:04 07/22/22 06:25 Labs: Laboratory Results - last 24 hr 07/21/22 16:25: Urine Color Yellow, Urine Clarity Clear, Urine pH 5.0, Ur Specific [place] 1.025, Urine Protein 30 H, Urine Glucose (UA) Normal, Urine Ketones 5 H, Urine Occult Blood 25 H, Urine Nitrite Negative, Urine Bilirubin Negative, Urine Urobilinogen Normal, Ur Leukocyte Esterase 25 H, Urine RBC 0 SEEN, Urine WBC 0-5 SEEN, Ur Squamous Epith Cells 0-5 SEEN, Urine Bacteria 0 SEEN, Urine Mucus 0 SEEN 07/21/22 16:47: WBC 6.9, RBC 3.34 L, Hgb 9.2 L, Hct 30.2 L, MCV 90.4, MCH 27.5, MCHC 30.5 L, RDW Std Deviation 44.5 H, RDW Coeff of Maldonado 13.5, Plt Count 137 L, MPV 11.3, Immature Gran % (Auto) 0.700, Neut % (Auto) 82.9 H, Lymph % (Auto) 7.9 L, [place] % (Auto) 7.5, Eos % (Auto) 0.9, Baso % (Auto) 0.1, Absolute Neuts (auto) 5.7, Absolute Lymphs (auto) 0.55 L, Nucleated RBC % 0.3, Differential Comment SCANNED 07/21/22 16:47: Procalcitonin 0.36 H 07/22/22 06:25: WBC 6.5, RBC 2.91 L, Hgb 8.1 L, Hct 26.7 L, MCV 91.8, MCH 27.8, MCHC 30.3 L, RDW Std Deviation 45.3 H, RDW Coeff of Maldonado 13.4, Plt Count 107 L, MPV 11.2, Immature Gran % (Auto) 0.300, Neut % (Auto) 81.5 H, Lymph % (Auto) 8.0 L, [place] % (Auto) 7.7, Eos % (Auto) 2.3, Baso % (Auto) 0.2, Absolute Neuts (auto) 5.3, Absolute Lymphs (auto) 0.52 L, Nucleated RBC % 0, Differential Comment SCANNED 07/22/22 06:25: Sodium 140, Potassium 3.9, Chloride 112 H, Carbon Dioxide 27.0, Anion Gap 1 L, BUN 19 H, Creatinine 0.78, Estim Creat Clear Calc 49.00, Est GFR (MDRD) Af Amer 93, Est GFR (MDRD) Non-Af 77, BUN/Creatinine Ratio 24.2 H, Glucose 120 H, Calcium 7.9 L, Phosphorus 1.4 L, Magnesium 1.7 07/22/22 12:04: Hgb 10.1 L, Hct 33.3 L Micro: Microbiology 07/21/22 17:16 Mucosa - Nasopharyngeal Respiratory Panel (PCR) - Final 07/21/22 16:25 Nasal Secretion SARS-CoV-2 & FLU Antigen (Rapid) - Final Radiography Diagnostic Testing: Radiology Impression Chest X-Ray 07/21/22 16:25 IMPRESSION: Mild left lung base atelectasis. Electronically Signed: Alan Wilson MD at 16:38 EST , Chest CTA 07/22/22 07:19 IMPRESSION: 1. No evidence of pulmonary embolism. 2. Left lower lobe infiltrate/atelectasis and small left pleural effusion. 3. Atelectatic changes bilaterally. 4. Ascending thoracic aortic aneurysm measuring up to 4.3 cm in AP diameter. 5. Large liver cysts. 6. Compression fractures of T6 and L1 vertebrae probably chronic. Electronically Signed: Paco Russo MD at 8:27 EST , Physical Exam Narrative General - A&Ox3, NAD. VSS/AF Right lower extremity -incisional dressing C/D/I. SILT Sural, Saphenous, SPN, DPN, Tibial N. distributions. DP, PT 2+. BCR. DF, PF, EHL 5/5. No calf TTP. Assessment & Plan Assessment/Plan (1) Fracture of right hip: PLAN: POD#2 s/p right JAVED - Pain control - Medicine following for medical management - PT/[id number] as tolerated right lower extremity with posterior precautions - DVT PPX -Lovenox 40 mg subcutaneously daily x28 days, SCDs, ABENA hose, early mobilization -Concern for patient going home especially today as she lives alone. Patient is wishing to go home where she lives alone. We discussed her needing significant assistance ambulating and transferring. I highly recommended consideration of placement including inpatient rehab versus SNF. Patient willing to consider inpatient rehab. This was discussed with outpatient case manager this afternoon. - Case management - D/C planning
--- NOTE | 2022-07-22 14:55 | PCM.PN.HOSP ---
Subjective Subjective Patient was preparing for discharge and was found to need oxygen at 2 L with desaturations in the 80s on room air along with a fever of 100.5 therefore discharge was held. Objective Data Objective Data Vital Signs: Vital Signs Temp Pulse Resp BP Pulse Ox O2 Del Method O2 Flow Rate 99.0 F 114 H 18 94/63 96 Room Air 96 07/22/22 14:53 07/22/22 14:53 07/22/22 14:53 07/22/22 14:53 07/22/22 14:53 07/22/22 14:53 07/22/22 14:53 Oxygen Flow Rate (L/min) 96 Oxygen Delivery Method Room Air Weight: 63.8 kg Body Mass Index (BMI) 22.6 Intake & Output: Intake and Output for Last 24 Hours 07/20/22 07/21/22 07/22/22 23:59 23:59 23:59 Intake Total 3436.67 / 3436.67 3735 / 3735 2054.00 / 2054.00 Output Total 500 / 500 1500 / 1700 200 / 200 Balance 2936.67 / 2936.67 2235 / 2035 1854.00 / 1854.00 Lab / Micro Data Result Diagrams: 07/22/22 12:04 07/22/22 06:25 Labs: Laboratory Results - last 24 hr 07/21/22 16:25: Urine Color Yellow, Urine Clarity Clear, Urine pH 5.0, Ur Specific [place] 1.025, Urine Protein 30 H, Urine Glucose (UA) Normal, Urine Ketones 5 H, Urine Occult Blood 25 H, Urine Nitrite Negative, Urine Bilirubin Negative, Urine Urobilinogen Normal, Ur Leukocyte Esterase 25 H, Urine RBC 0 SEEN, Urine WBC 0-5 SEEN, Ur Squamous Epith Cells 0-5 SEEN, Urine Bacteria 0 SEEN, Urine Mucus 0 SEEN 07/21/22 16:47: WBC 6.9, RBC 3.34 L, Hgb 9.2 L, Hct 30.2 L, MCV 90.4, MCH 27.5, MCHC 30.5 L, RDW Std Deviation 44.5 H, RDW Coeff of Maldonado 13.5, Plt Count 137 L, MPV 11.3, Immature Gran % (Auto) 0.700, Neut % (Auto) 82.9 H, Lymph % (Auto) 7.9 L, [place] % (Auto) 7.5, Eos % (Auto) 0.9, Baso % (Auto) 0.1, Absolute Neuts (auto) 5.7, Absolute Lymphs (auto) 0.55 L, Nucleated RBC % 0.3, Differential Comment SCANNED 07/21/22 16:47: Procalcitonin 0.36 H 07/22/22 06:25: WBC 6.5, RBC 2.91 L, Hgb 8.1 L, Hct 26.7 L, MCV 91.8, MCH 27.8, MCHC 30.3 L, RDW Std Deviation 45.3 H, RDW Coeff of Maldonado 13.4, Plt Count 107 L, MPV 11.2, Immature Gran % (Auto) 0.300, Neut % (Auto) 81.5 H, Lymph % (Auto) 8.0 L, [place] % (Auto) 7.7, Eos % (Auto) 2.3, Baso % (Auto) 0.2, Absolute Neuts (auto) 5.3, Absolute Lymphs (auto) 0.52 L, Nucleated RBC % 0, Differential Comment SCANNED 07/22/22 06:25: Sodium 140, Potassium 3.9, Chloride 112 H, Carbon Dioxide 27.0, Anion Gap 1 L, BUN 19 H, Creatinine 0.78, Estim Creat Clear Calc 49.00, Est GFR (MDRD) Af Amer 93, Est GFR (MDRD) Non-Af 77, BUN/Creatinine Ratio 24.2 H, Glucose 120 H, Calcium 7.9 L, Phosphorus 1.4 L, Magnesium 1.7 07/22/22 12:04: Hgb 10.1 L, Hct 33.3 L Micro: Microbiology 07/21/22 17:16 Mucosa - Nasopharyngeal Respiratory Panel (PCR) - Final 07/21/22 16:25 Nasal Secretion SARS-CoV-2 & FLU Antigen (Rapid) - Final Radiography Diagnostic Testing: Radiology Impression Chest X-Ray 07/21/22 16:25 IMPRESSION: Mild left lung base atelectasis. Electronically Signed: Alan Wilson MD at 16:38 EST , Chest CTA 07/22/22 07:19 IMPRESSION: 1. No evidence of pulmonary embolism. 2. Left lower lobe infiltrate/atelectasis and small left pleural effusion. 3. Atelectatic changes bilaterally. 4. Ascending thoracic aortic aneurysm measuring up to 4.3 cm in AP diameter. 5. Large liver cysts. 6. Compression fractures of T6 and L1 vertebrae probably chronic. Electronically Signed: Paco Russo MD at 8:27 EST , Physical Exam Const alert, oriented x3, no apparent distress, no limitations, healthy appearing and well nourished Constitutional Narrative: Older white female sitting up in bed, appears comfortable, reading the paper and watching television, nontoxic, currently on 2 L nasal cannula HEENT normocephalic, head/scalp atraumatic, hearing grossly normal bilaterally and moist oral mucous membranes Resp normal respiratory effort, no retractions, no use of accessory muscles and clear to auscultation bilaterally Resp Narrative: Slightly diminished at left base but no adventitious sounds Auscultation: Negative for crackles, rhonchi or wheezes Cardio regular rate, regular rhythm, S1 normal heart sound, S2 normal heart sound, no murmurs, no rub, no gallops and no clicks GI normal to inspection, nondistended, normoactive bowel sounds, soft to palpation and non-tender Extremity no clubbing, cyanosis or edema Skin Skin Narrative: Postoperative dressing on the right hip is clean and dry, no ecchymosis Neuro oriented x3, moves all extremities and no focal motor deficits Speech: speech normal Psych affect normal Psych Narrative: Pleasant Mood & Affect: anxious Assessment & Plan Assessment/Plan (1) Fracture of right hip: PLAN: Plan Right impacted subcapital fracture of the femoral neck -OR postop day 3 -Doing very well with regards to her hip -DVT prophylaxis per primary service -Continue pain medications as needed -PT/OT okay for home with home health -Vitamin D level is within normal limits -Chest x-ray and EKG unremarkable Fall -Fall was mechanical -PT/OT following surgery Postoperative fever -Chest x-ray was unremarkable -No elevated white count -Blood cultures obtained -Unclear if this is just postoperative fever from atelectasis or an evolving pneumonia -I did do a CT of the chest to rule out PE and there were no signs of fatty embolus either Acute hypoxia without respiratory failure -Respiratory PCR is negative -COVID and flu rapid were negative -Currently on 2 L nasal cannula and wean as able -Patient is not O2 dependent at baseline and has no lung diseases -Incentive spirometer and patient has been compliant -If able to wean today will likely be able to discharge tomorrow Postoperative anemia -Count slightly dropped from yesterday -Repeat was done at noon and hemoglobin trended up after discontinuation of fluids to 10.2 -Likely dilutional and postoperative DVT prophylaxis -Per primary service CODE STATUS -Full code Charges/Coding Visit Charges Inpatient E&M: 69229 Subs Hosp L2
--- NOTE | 2022-07-22 15:55 | CASEMGMT ---
Addendum entered by Cassy Macias 07/22/22 16:00: Cassy Macias CERTIFIED CODING SPECIALIST, AUTOMOTIVE PAINTER HELPER Original Note: ANGELITA Note ANGELITA and ANGELITA Smith met with patient and introduced themselves and role as [facility] Roof Truss Detailer. ANGELITA informed patient TCU was not currently accepting patient's insurance and inquired about alternative SNF options. SW provided patient with a list of local in network SNF options. Patient stated she wanted to return home but was receptive towards reviewing the list due to having a conversation with the doctor about recommending SNF at discharge. Patient stated she was open to a referral being sent to [facility] and her second choice was [facility] (not currently accepting patient's insurance). SW sent referral to [facility] via [employer]. Plan: [facility] pending acceptance and being medically ready.
[2022-07-22] MEDS: dilTIAZem 25 MG/5 ML Vial 10 MG IV BOLUS (23:21)
--- NOTE | 2022-07-22 23:27 | NURSING ---
Report called to HOMERO Infante on PCU. This nurse notified pt's violettaece Laura of transfer per pt's request.
--- NOTE | 2022-07-22 23:41 | ECHOD_ITS ---
Reason For Study: Afib, Aflutter Procedure This was a 2D Doppler, Color Flow transthoracic echocardiogram. The exam was of adequate technical quality. Exam performed portable in patient room. Left Ventricle Normal LV size. Left ventricular systolic function is normal. The estimated ejection fraction is 70 %. No evidence for diastolic dysfunction. No regional wall motion abnormalities noted. Right Ventricle Normal RV size. Normal systolic function. Atria Normal left atrium. The right atrium is mildly enlarged. Agitated saline contrast study considered positive for a right to left interatrial shunt compatible with a PFO, however, a small ASD cannot necessarily be excluded. Mitral Valve There is no mitral annular calcification. Normal mitral valve. Mild (1+) mitral valve insufficiency. Tricuspid Valve Normal tricuspid valve. Mild to moderate (1-2+) eccentric tricuspid valve insufficiency. Right ventricular systolic pressure estimated to be 32 mmHg. Aortic Valve Trisinus/trileaflet aortic valve. Mild diffuse aortic valve thickening. Trivial aortic valve insufficiency. Pulmonic Valve The pulmonic valve is not well visualized. Trivial pulmonic valve insufficiency. Great Vessels Mildly dilated aortic root. Pericardium/Pleural No pericardial effusion. Echolucency compatible with a pleural effusion. Medication Performed a rapid injection of agitated mix of 9 cc saline and 1cc air to assess for atrial septal defect. MMode/2D Measurements & Calculations LVIDd: 4.1 cm IVSd: 1.1 cm Ao root diam: 4.3 cm LVIDs: 2.1 cm LVPWd: 0.63 cm RVDd: 4.5 cm FS: 49.1 % LAV(MOD-bp): 28.3 ml LVAd ap4: 22.9 cm2 SV(MOD-sp4): 39.7 ml LAV(MOD-bp) Indexed: 16.5 ml/m2 LVLd ap4: 7.5 cm LAV(MOD-sp2): 29.9 ml EDV(MOD-sp4): 57.3 ml LAV(MOD-sp4): 24.2 ml EDV(sp4-el): 59.1 ml LVAs ap4: 11.0 cm2 LVLs ap4: 5.7 cm ESV(MOD-sp4): 17.6 ml ESV(sp4-el): 18.2 ml EF(MOD-sp4): 69.3 % EF(sp4-el): 69.2 % SV(sp4-el): 40.9 ml LA A4 area: 12.4 cm2 LA dimension(2D): 3.2 cm RA A4 area: 12.9 cm2 Time Measurements MV dec time: 0.24 sec Doppler Measurements & Calculations MV E max quang: 75.4 cm/sec Lat Peak E' Quang: 17.2 cm/sec Med Peak E' Quang: 8.4 cm/sec MV A max quang: 54.9 cm/sec E/E' lat: 4.4 E/E' med: 9.0 MV E/A: 1.4 Ao V2 max: 187.4 cm/sec AI max quang: 468.6 cm/sec LV V1 max: 177.3 cm/sec Ao max P.0 mmHg AI max P.0 mmHg LV V1 max P.6 mmHg Ao V2 mean: 118.4 cm/sec AI dec slope: 275.8 cm/sec2 Ao mean P.3 mmHg AI P1/2t: 497.6 msec Ao V2 VTI: 30.7 cm PA V2 max: 114.3 cm/sec TR max quang: 272.8 cm/sec TR max P.8 mmHg ECHO/Echo Complete Interpretation Summary Left ventricular systolic function is normal. The estimated ejection fraction is 70 %. The right atrium is mildly enlarged. Mild (1+) mitral valve insufficiency. Mild to moderate (1-2+) eccentric tricuspid valve insufficiency. Mild diffuse aortic valve thickening. Trivial aortic valve insufficiency. Trivial pulmonic valve insufficiency. Mildly dilated aortic root. Echolucency compatible with a pleural effusion. Right ventricular systolic pressure estimated to be 32 mmHg. No evidence for diastolic dysfunction. Agitated saline contrast study considered positive for a right to left interatr ial shunt compatible with a PFO, however, a small ASD cannot necessarily be excluded. Comment: Echolucencies noted in the hepatic area compatible with hepatic cysts. Consider further radiologic evaluation if clinically indicated. Ordering Physician: Uriah Vega Referring Physician: Michelle Deng Performed By: Guera Christianson RDCS, RVT
[2022-07-23] VITALS (26 sets, daily range): BP systolic 88–112; BP diastolic 67–76; PULSE 74–135; RESP 12–21; TEMP 36.2–37.4; O2SAT 92–98
[2022-07-23] MEDS: Enoxaparin 60 MG/0.6 ML Syringe SC ×3 (00:55→21:33)
--- NOTE | 2022-07-23 01:58 | EKG12_ITS ---
Test Reason : TACHYCARDIA Blood Pressure : / mmHG Vent. Rate : 149 BPM Atrial Rate : 131 BPM P-R Int : 000 ms QRS Dur : 072 ms QT Int : 326 ms P-R-T Axes : 000 -06 013 degrees QTc Int : 513 ms Atrial fibrillation with premature ventricular or aberrantly conducted complexes Nonspecific ST and T wave abnormality Abnormal ECG Confirmed by FERMÍN DRAPER, GUEVARA ([id number]), editor city VICTOR MANUEL HUERTAS ([id number]) on 07/26/2022 10:38:48 AM Referred By: CLIFFORD Confirmed By:GUEVARA KOVACS MD
--- NOTE | 2022-07-23 02:59 | EKG12_ITS ---
Test Reason : RYTHM CHANGE Blood Pressure : / mmHG Vent. Rate : 089 BPM Atrial Rate : 089 BPM P-R Int : 156 ms QRS Dur : 076 ms QT Int : 364 ms P-R-T Axes : 027 -06 026 degrees QTc Int : 442 ms Sinus rhythm with marked sinus arrhythmia Nonspecific T wave abnormality Abnormal ECG Confirmed by FERMÍN DRAPER, GUEVARA ([id number]), newspaper copy editor VICTOR MANUEL HUERTAS ([id number]) on 07/27/2022 9:53:06 AM Referred By: CRICKET Confirmed By:GUEVARA KOVACS MD
--- NOTE | 2022-07-23 03:00 | NURSING ---
Dr Vega notified of rhythm now sinus, orders received.
[2022-07-23] MEDS: dilTIAZem 30 MG Tablet PO ×3 (03:42→21:33)
[2022-07-23 07:33] LABS: Absolute Lymphocyte Count 0.76 X10^3/uL (0.83-4.51); Basophil# 0.03 X10^3/uL; Basophil% 0.5 % (0-1); Eosinophil# 0.27 X10^3/uL; Eosinophils% 4.1 % (0-5); Hematocrit 29.2 % (37-47); Hemoglobin 9.2 g/dL (12.0-15.0); Lymphocyte # 0.76 X10^3/ul (0.83-4.51); Lymphocyte % 11.7 % (19-41); Mean Corp Hgb Conc 31.5 g/dL (32-36); Mean Corpuscular Hgb 28.3 pg (27.0-32.0); Mean Corpuscular Volume 89.8 fL (81-99); Mean Platelet Vol. 11.2 fl (6.2-12.0); Monocyte# 0.38 X10^3/uL; Monocyte% 5.8 % (0-10); NRBC Flagged by Analyzer 0 % (0-5); Neutrophil # 5.04 X10^3/uL (2.7-7.7); Neutrophil % 77.4 % (47-70); Platelet Count 166 K/mm3 (150-450); RBC Distribution Width CV 13.4 % (11.6-14.6); RBC Distribution Width SD 44.5 fl (35.1-43.9); Red Blood Count 3.25 M/mm3 (4.2-5.4); White Blood Count 6.5 K/mm3 (4.4-11.0)
[2022-07-23 08:07] LABS: Anion Gap 7 (5-15); BUN 12 mg/dL (7-18); Calcium,Total 8.4 mg/dL (8.5-10.1); Chloride 108 mmol/L (98-107); Creatinine, Serum 0.67 mg/dL (0.55-1.02); EST Glomerular Filtration Rate 93 mL/min (>60); Est Glom Filt Rate - Afr Amer 113 mL/min (>60); Glucose 94 mg/dL (74-106); Phosphorus 2.7 mg/dL (2.5-4.9); Potassium 3.2 mmol/L (3.5-5.1); Sodium Level 141 mmol/L (136-145); Thyroid Stim Hormone (TSH) 3.18 uIU/mL (0.358-3.74)
--- NOTE | 2022-07-23 08:08 | NURSING ---
Emergency documentation per extension service specialist in charge
[2022-07-23] MEDS: Acetaminophen 500 MG Tablet 1000 MG PO ×2 (08:54→19:58)
[2022-07-23] MEDS: Cholecalciferol (VIT D3) 25 MCG TABLET (1,000 UNITS) PO (08:54)
[2022-07-23] MEDS: Multivitamins,Therapeutic Tablet 1 TABLET PO (08:54)
[2022-07-23] MEDS: Senna/Docusate Sodium 1 Tablet 2 TABLET PO ×2 (08:54→21:33)
[2022-07-23] MEDS: Aspirin E.C. 81 MG Tablet PO (08:54)
[2022-07-23] MEDS: Calcium Carbonate 500 MG Tablet PO ×2 (08:55→12:51)
--- NOTE | 2022-07-23 11:05 | PCM.PN.HOSP ---
Subjective Subjective Right reviewed. Patient developed paroxysmal atrial fibrillation overnight and was transferred to PCU. Episode was brief and she converted independently. Was placed on Cardizem to help control rate. Also was placed on therapeutic Lovenox. Remains in sinus rhythm at this time. Patient states she feels well. Off oxygen and sats stable. Objective Data Objective Data Vital Signs: Vital Signs Temp Pulse Resp BP Pulse Ox O2 Del Method O2 Flow Rate 97.1 F L 99 20 H 109/74 96 Room Air 2 07/23/22 07:53 07/23/22 07:53 07/23/22 07:53 07/23/22 07:53 07/23/22 10:38 07/23/22 10:38 07/23/22 10:07 Oxygen Flow Rate (L/min) 2 Oxygen Delivery Method Room Air Weight: 63.8 kg Body Mass Index (BMI) 22.6 Intake & Output: Intake and Output for Last 24 Hours 07/21/22 07/22/22 07/23/22 23:59 23:59 23:59 Intake Total 3735 / 3735 2054.00 / 2254.00 1084.7533 / 1084.7533 Output Total 1500 / 1700 200 / 200 500 / 500 Balance 2235 / 2035 1854.00 / 2054.00 584.7533 / 584.7533 Lab / Micro Data Result Diagrams: 07/23/22 07:05 07/23/22 07:05 Labs: Laboratory Results - last 24 hr 07/22/22 12:04: Hgb 10.1 L, Hct 33.3 L 07/23/22 07:05: WBC 6.5, RBC 3.25 L, Hgb 9.2 L, Hct 29.2 L, MCV 89.8, MCH 28.3, MCHC 31.5 L, RDW Std Deviation 44.5 H, RDW Coeff of Maldonado 13.4, Plt Count 166, MPV 11.2, Immature Gran % (Auto) 0.500, Neut % (Auto) 77.4 H, Lymph % (Auto) 11.7 L, [place] % (Auto) 5.8, Eos % (Auto) 4.1, Baso % (Auto) 0.5, Absolute Neuts (auto) 5.0, Absolute Lymphs (auto) 0.76 L, Nucleated RBC % 0 07/23/22 07:05: Sodium 141, Potassium 3.2 L, Chloride 108 H, Carbon Dioxide 26.0, Anion Gap 7, BUN 12, Creatinine 0.67, Estim Creat Clear Calc 49.00, Est GFR (MDRD) Af Amer 113, Est GFR (MDRD) Non-Af 93, BUN/Creatinine Ratio 18.0, Glucose 94, Calcium 8.4 L, Phosphorus 2.7, TSH 3.18 Micro: Microbiology 07/21/22 17:16 Mucosa - Nasopharyngeal Respiratory Panel (PCR) - Final 07/21/22 16:25 Nasal Secretion SARS-CoV-2 & FLU Antigen (Rapid) - Final Physical Exam Const alert, oriented x3, no apparent distress, no limitations, healthy appearing and well nourished Constitutional Narrative: Older white female sitting up in a chair at the bedside, on her cell phone trying to get [employer] service on [employer], nursing at bedside, on room air HEENT normocephalic, head/scalp atraumatic, hearing grossly normal bilaterally and moist oral mucous membranes Resp normal respiratory effort, no retractions, no use of accessory muscles and clear to auscultation bilaterally Auscultation: Negative for crackles, rhonchi or wheezes Cardio regular rate, regular rhythm, S1 normal heart sound, S2 normal heart sound, no murmurs, no rub, no gallops and no clicks GI normal to inspection, nondistended, normoactive bowel sounds, soft to palpation and non-tender Extremity no clubbing, cyanosis or edema Extremity Narrative: 2+ dorsalis pedis pulses Neuro oriented x3 and no focal motor deficits Speech: speech normal Psych affect normal Psych Narrative: Pleasant Mood & Affect: anxious Assessment & Plan Assessment/Plan (1) Fracture of right hip: (2) Aspiration pneumonia: (3) Paroxysmal atrial fibrillation: PLAN: Plan Right impacted subcapital fracture of the femoral neck -OR postop day 4 -Doing very well with regards to her hip -We will utilize full anticoagulation with development of paroxysmal atrial fibrillation -Continue pain medications as needed -PT/OT okay for home with home health -Vitamin D level is within normal limits -Restart vitamin D at discharge -Continue calcium carbonate at discharge -Chest x-ray and EKG unremarkable PAF -On the evening of 07/22/2022 patient developed atrial fibrillation with RVR -Was a very short event and patient fairly rapidly converted -Placed on Cardizem we will continue 30 3 times daily at this time monitor blood pressures and heart rate -Start Eliquis 5 mg p.o. twice daily -Plan will be to continue Eliquis and Cardizem at discharge as long as blood pressure and heart rate are stable with Cardizem and to obtain an event monitor with outpatient cardiology follow-up--> if she has no A. fib with the event monitor they may be able to discontinue anticoagulation but at this time she needs anticoagulated at least prophylactically postoperatively has no contraindications to full anticoagulation Fall -Fall was mechanical -PT/OT following surgery Postoperative fever -Resolved -Chest x-ray was unremarkable but CT showed left lower lobe infiltrate -Highly suspect aspiration postoperatively -No elevated white count -Blood cultures remain pending however I do anticipate them being negative based on clinical status -CTA was negative for any signs of PE or fatty embolus Acute hypoxia without respiratory failure secondary to post extubation aspiration -Respiratory PCR is negative -COVID and flu rapid were negative -Has been weaned to room air -CTA of the chest negative for PE or signs of fatty emboli does show basal infiltrate of the left lower lobe -Will transition to oral Augmentin to complete antibiotic course -Day 3 of 7 for antibiotics today -Continue incentive spirometer Postoperative anemia -Hemoglobin is stable -Will repeat in a.m. since patient is anticoagulated DVT prophylaxis -Per primary service CODE STATUS -Full code Charges/Coding Visit Charges Inpatient E&M: 89971 Subs Hosp L2
[2022-07-23] MEDS: Amox/Clavulanate 875 MG Tablet PO ×2 (12:51→21:33)
[2022-07-23] MEDS: oxyCODONE 5 MG Tablet PO ×2 (14:57→19:57)
[2022-07-23] MEDS: Morphine 2 MG/ML Syringe IV (16:18)
[2022-07-23] MEDS: 0.9% Saline Lock 10 ML Syringe IV (16:21)
[2022-07-24] VITALS (12 sets, daily range): BP systolic 98–122; BP diastolic 68–89; PULSE 81–104; RESP 16–20; TEMP 36.3–37; O2SAT 84–97
[2022-07-24] MEDS: oxyCODONE 5 MG Tablet PO ×4 (00:02→20:00)
[2022-07-24] MEDS: Acetaminophen 500 MG Tablet 1000 MG PO ×2 (04:50→17:57)
[2022-07-24] MEDS: dilTIAZem 30 MG Tablet PO ×3 (04:50→22:46)
[2022-07-24 08:35] LABS: Absolute Lymphocyte Count 0.68 X10^3/uL (0.83-4.51); Absolute Neutrophil Count 4.9 X10^3/uL (2.0-7.7); Basophil# 0.02 X10^3/uL; Basophil% 0.3 % (0-1); Eosinophil# 0.26 X10^3/uL; Eosinophils% 4.1 % (0-5); Hematocrit 28.7 % (37-47); Lymphocyte # 0.68 X10^3/ul (0.83-4.51); Lymphocyte % 10.8 % (19-41); Mean Corp Hgb Conc 31.4 g/dL (32-36); Mean Corpuscular Hgb 27.8 pg (27.0-32.0); Mean Corpuscular Volume 88.6 fL (81-99); Monocyte% 6.3 % (0-10); NRBC Flagged by Analyzer 0 % (0-5); Neutrophil % 77.9 % (47-70); Platelet Count 230 K/mm3 (150-450); RBC Distribution Width CV 13.2 % (11.6-14.6); RBC Distribution Width SD 43.5 fl (35.1-43.9); Red Blood Count 3.24 M/mm3 (4.2-5.4); White Blood Count 6.3 K/mm3 (4.4-11.0)
[2022-07-24 09:09] LABS: Anion Gap 5 (5-15); BUN 16 mg/dL (7-18); BUN/Creat Ratio 23.2 RATIO (10-20); Calcium,Total 8.5 mg/dL (8.5-10.1); Chloride 107 mmol/L (98-107); Creatinine, Serum 0.69 mg/dL (0.55-1.02); EST Glomerular Filtration Rate 89 mL/min (>60); Est Glom Filt Rate - Afr Amer 108 mL/min (>60); Glucose 95 mg/dL (74-106); Potassium 3.5 mmol/L (3.5-5.1); Sodium Level 139 mmol/L (136-145)
[2022-07-24] MEDS: Aspirin E.C. 81 MG Tablet PO (09:25)
[2022-07-24] MEDS: Cholecalciferol (VIT D3) 25 MCG TABLET (1,000 UNITS) PO (09:25)
[2022-07-24] MEDS: Enoxaparin 60 MG/0.6 ML Syringe SC ×2 (09:25→22:46)
[2022-07-24] MEDS: Amox/Clavulanate 875 MG Tablet PO ×2 (09:25→22:46)
[2022-07-24] MEDS: Multivitamins,Therapeutic Tablet 1 TABLET PO (09:25)
[2022-07-24] MEDS: Senna/Docusate Sodium 1 Tablet 2 TABLET PO ×2 (09:25→22:46)
[2022-07-24] MEDS: Calcium Carbonate 500 MG Tablet PO ×3 (09:25→17:58)
--- NOTE | 2022-07-24 15:07 | PN.HOSP_ITS ---
Subjective Subjective Follow-up on paroxysmal atrial fibrillation/hypoxia/acute right hip fracture: Patient was seen and examined. She complains of pain in her right hip. She is off oxygen at the time of being seen. Objective Data Objective Data Vital Signs: Vital Signs Temp Pulse Resp BP Pulse Ox O2 Del Method O2 Flow Rate 97.4 F L 87 20 H 101/72 97 Nasal Cannula 2 07/24/22 09:18 07/24/22 09:18 07/24/22 09:18 07/24/22 09:18 07/24/22 09:18 07/24/22 10:00 07/24/22 09:18 Oxygen Flow Rate (L/min) 2 Oxygen Delivery Method Nasal Cannula Weight: 63.8 kg Body Mass Index (BMI) 22.6 Intake & Output: Intake and Output for Last 24 Hours 07/22/22 07/23/22 07/24/22 23:59 23:59 23:59 Intake Total 2054.00 / 2254.00 1864.7533 / 2164.7533 300 / 300 Output Total 200 / 200 850 / 1050 400 / 400 Balance 1854.00 / 2054.00 1014.7533 / 1114.7533 -100 / -100 Lab / Micro Data Result Diagrams: 07/24/22 07:27 07/24/22 07:27 Labs: Laboratory Results - last 24 hr 07/24/22 07:27: WBC 6.3, RBC 3.24 L, Hgb 9.0 L, Hct 28.7 L, MCV 88.6, MCH 27.8, MCHC 31.4 L, RDW Std Deviation 43.5, RDW Coeff of Maldonado 13.2, Plt Count 230, MPV 11.0, Immature Gran % (Auto) 0.600, Neut % (Auto) 77.9 H, Lymph % (Auto) 10.8 L, [place] % (Auto) 6.3, Eos % (Auto) 4.1, Baso % (Auto) 0.3, Absolute Neuts (auto) 4.9, Absolute Lymphs (auto) 0.68 L, Nucleated RBC % 0 07/24/22 07:27: Sodium 139, Potassium 3.5, Chloride 107, Carbon Dioxide 27.0, Anion Gap 5, BUN 16, Creatinine 0.69, Estim Creat Clear Calc 49.00, Est GFR (MDRD) Af Amer 108, Est GFR (MDRD) Non-Af 89, BUN/Creatinine Ratio 23.2 H, Glucose 95, Calcium 8.5 Micro: Microbiology 07/21/22 19:00 Blood Culture (Wb) - Anticubital Left Blood Culture - Preliminary No growth in 48 hours. 07/21/22 19:07 Blood Culture (Wb) - Right Hand Blood Culture - Preliminary No growth in 48 hours. 07/21/22 17:16 Mucosa - Nasopharyngeal Respiratory Panel (PCR) - Final 07/21/22 16:25 Nasal Secretion SARS-CoV-2 & FLU Antigen (Rapid) - Final Radiography Diagnostic Testing: Radiology Impression Echocardiogram 07/22/22 23:41 Interpretation Summary Left ventricular systolic function is normal. The estimated ejection fraction is 70 %. The right atrium is mildly enlarged. Mild (1+) mitral valve insufficiency. Mild to moderate (1-2+) eccentric tricuspid valve insufficiency. Mild diffuse aortic valve thickening. Trivial aortic valve insufficiency. Trivial pulmonic valve insufficiency. Mildly dilated aortic root. Echolucency compatible with a pleural effusion. Right ventricular systolic pressure estimated to be 32 mmHg. No evidence for diastolic dysfunction. Agitated saline contrast study considered positive for a right to left interatrial shunt compatible with a PFO, however, a small ASD cannot necessarily be excluded. Comment: Echolucencies noted in the hepatic area compatible with hepatic cysts. Consider further radiologic evaluation if clinically indicated. Ordering Physician: Uriah Vega Referring Physician: Michelle Deng Performed By: Guera Christianson, MALINDA, RVT Physical Exam Narrative Physical exam: General: Alert, Oriented x3, Cooperative, appears very anxious HEENT: Atraumatic Oral: Moist Mucosa Neck: Supple Lungs: Diminished to auscultation Cardiovascular: HS I+II, regular, no murmurs Abdomen: Bowel Sounds Present, Soft, Non Tender Extremities: No edema Skin: No rashes, No breakdown Neurological: Grossly intact Psych/Mental Status: Appropriate Assessment & Plan Assessment/Plan (1) Fracture of right hip: (2) Aspiration pneumonia: (3) Paroxysmal atrial fibrillation: PLAN: Plan 1. Postop day #5 status post right total hip arthroplasty for right impacted subcapital fracture of the femoral neck Status post mechanical fall Pain is fairly controlled, continue per orthopedics recommendations, PT and OT to evaluate and treat 2. Paroxysmal atrial fibrillation, patient was in normal sinus rhythm and back in A. fib again Continue with Cardizem and Lovenox; will transition to Eliquis at discharge 3. Postop fever, likely secondary to atelectasis versus aspiration pneumonitis Continue on oral Augmentin 4. Acute hypoxia secondary to atelectasis/aspiration pneumonitis Patient is off oxygen. Respiratory panel as well as COVID and flu were negative CTA of the chest was negative for acute PE or fat emboli 5. Postop anemia, hemoglobin remained stable, will continue to trend 6. DVT PPx- on Lovenox SC Charges/Coding Visit Charges Inpatient E&M: 87457 Subs Hosp L2
[2022-07-25] VITALS (7 sets, daily range): BP systolic 97–117; BP diastolic 75–81; PULSE 81–98; RESP 18–20; TEMP 36.8; O2SAT 93–100
[2022-07-25] MEDS: Acetaminophen 500 MG Tablet 1000 MG PO (02:15)
[2022-07-25] MEDS: oxyCODONE 5 MG Tablet PO ×2 (04:34→09:22)
[2022-07-25] MEDS: dilTIAZem 30 MG Tablet PO ×2 (06:27→14:51)
--- NOTE | 2022-07-25 07:33 | TREXTCAR_ITS ---
Diet Diet Order/Speech Therapy: 07/21/22 02:26 Diet: Regular - General Is pt able to select menu?: Yes Routine Orders/Code Status Suppository Type: Dulcolax 10mg Suppository Frequency: Daily PRN O2 Liters per Minute: 2 O2 Frequency: Continuous Keep PO Greater than or Equal to (%): 94 Routine Lab Work: CBC (within 3 days) and - (CMP WITHIN 3 DAYS) Code Status: Full Code Wound(s) right hip: Wound Type: Surgical Incision left elbow: Wound Type: Abrasion Therapies Weight Bearing: Weight bearing as tolerated Extremity Affected:: Right Lower Physical Therapy: Eval and Treat Occupational Therapy: Eval and Treat Problem/Diagnosis (1) Fracture of right hip: Status: Acute Code(s): S72.001A - Fracture of unspecified part of neck of right femur, initial encounter for closed fracture (2) Aspiration pneumonia: Status: Acute Code(s): J69.0 - Pneumonitis due to inhalation of food and vomit (3) Paroxysmal atrial fibrillation: Status: Acute Code(s): I48.0 - Paroxysmal atrial fibrillation Plan 1. POD #5 status post right total hip arthroplasty for right impacted subcapital fracture of the femoral neck 2. Paroxysmal atrial fibrillation 3. Postop fever, likely secondary to atelectasis versus aspiration pneumonitis 4. Acute hypoxia secondary to atelectasis/aspiration pneumonitis 5. Postop anemia Allergies/Procedures Done in Hospital Allergies hydromorphone [From Dilaudid] Adverse Reaction (Verified 07/19/22 17:40) Vomiting Procedures: - (S/P RIGHT HIP ARTHROPLASTY) Type of Care/Length of Stay Estimated LOS: Convalescent Care Less Than 30 days Type of Care Needed: Skilled Rehab Potential: Good Prognosis: Good Additional Orders/Day of Discharge Day of Discharge: 07/25/22 Discharge Plan Admission Admit Date/Time: 07/19/22 19:40 Primary Reason for Your Visit: Right hip pain Attending Provider: Loren Davis Primary Care Provider: Michelle Deng Consulting Providers: Claudio Wolf ; Claudio Correa ; Karen Barbosa Instructions Additional Instructions / Restrictions: 1. Please follow posterior hip replacement precautions as described by physical therapy 2. While in bed please utilize a blanket between your knees to maintain hip precautions 3. Okay to shower postop day [address] 4. Remove dressing on postop day 7 5. Okay to shower after dressing removal but avoid soaking in a tub until permitted by orthopedic surgery 6. Please utilize a walker at all times until released by physical therapy Discharge Orders/Prescriptions Prescriptions: New oxycodone 5 mg Tablet 5 mg PO Q4H PRN PRN (Reason: Pain Score 6-10) 7 Days Qty: 42 0RF sennosides-docusate sodium [Stool Softener-Stimulant Laxat] 8.6-50 mg Tablet 2 tab PO BID Qty: 60 0RF diltiazem HCl 30 mg Tablet 30 mg PO Q8 Qty: 90 0RF Eliquis 5 mg tablet 5 mg PO BID Qty: 60 0RF amoxicillin-pot clavulanate 875-125 mg Tablet 875 mg PO BID 2 Days Qty: 0 0RF Rx Instructions: Last dose is 07/27/22 morning Continued aspirin 81 mg Tablet,Delayed Release (Dr/Ec) 81 mg PO DAILY multivitamin Tablet 1 tab PO DAILY cholecalciferol (vitamin D3) [Vitamin D3] 25 mcg (1,000 unit) Capsule 25 mcg PO DAILY Other Ambulatory Orders: 30 Day Event Recorder Preventi (Urgent) Timeframe: 1 Day Facility: [facility] - Location: Cardiovascular Services Ordered By: Dr. Karen Barbosa Referrals / Follow Up: Michelle Deng MD [Primary Care Provider] - Within 2 Weeks Claudio Correa DO [Med Staff - Active Staff] - Within 2 Weeks (Call for appointment) Alan Cooper MD [Med Staff - Active Staff] - Within 2 Weeks (post of A-fib) Disposition Disposition (needs filled in before D/C Order can be placed): Retirement Facility
--- NOTE | 2022-07-25 08:32 | PCM.PN.HOSP ---
Subjective Subjective Follow-up on paroxysmal atrial fibrillation/hypoxia/acute right hip fracture: Patient was seen and examined.? She was put back on oxygen last night as she desaturated. Denied any chest pain or shortness of breath. Awaiting on discharge planning. Objective Data Objective Data Vital Signs: Vital Signs Temp Pulse Resp BP Pulse Ox O2 Del Method O2 Flow Rate 98.2 F 81 18 97/75 93 Nasal Cannula 2 07/25/22 04:31 07/25/22 07:08 07/25/22 04:31 07/25/22 06:25 07/25/22 06:54 07/25/22 06:54 07/25/22 06:54 Oxygen Flow Rate (L/min) 2 Oxygen Delivery Method Nasal Cannula Weight: 63.8 kg Body Mass Index (BMI) 22.6 Intake & Output: Intake and Output for Last 24 Hours 07/23/22 07/24/22 07/25/22 23:59 23:59 23:59 Intake Total 1864.7533 / 2164.7533 300 / 420 240 / 240 Output Total 850 / 1050 400 / 600 200 / 200 Balance 1014.7533 / 1114.7533 -100 / -180 40 / 40 Lab / Micro Data Result Diagrams: 07/24/22 07:27 07/24/22 07:27 Labs: Laboratory Results - last 24 hr 07/24/22 07:27: WBC 6.3, RBC 3.24 L, Hgb 9.0 L, Hct 28.7 L, MCV 88.6, MCH 27.8, MCHC 31.4 L, RDW Std Deviation 43.5, RDW Coeff of Maldonado 13.2, Plt Count 230, MPV 11.0, Immature Gran % (Auto) 0.600, Neut % (Auto) 77.9 H, Lymph % (Auto) 10.8 L, [place] % (Auto) 6.3, Eos % (Auto) 4.1, Baso % (Auto) 0.3, Absolute Neuts (auto) 4.9, Absolute Lymphs (auto) 0.68 L, Nucleated RBC % 0 07/24/22 07:27: Sodium 139, Potassium 3.5, Chloride 107, Carbon Dioxide 27.0, Anion Gap 5, BUN 16, Creatinine 0.69, Estim Creat Clear Calc 49.00, Est GFR (MDRD) Af Amer 108, Est GFR (MDRD) Non-Af 89, BUN/Creatinine Ratio 23.2 H, Glucose 95, Calcium 8.5 Micro: Microbiology 07/21/22 19:00 Blood Culture (Wb) - Anticubital Left Blood Culture - Preliminary No growth in 48 hours. 07/21/22 19:07 Blood Culture (Wb) - Right Hand Blood Culture - Preliminary No growth in 48 hours. 07/21/22 17:16 Mucosa - Nasopharyngeal Respiratory Panel (PCR) - Final 07/21/22 16:25 Nasal Secretion SARS-CoV-2 & FLU Antigen (Rapid) - Final Radiography Diagnostic Testing: Radiology Impression Echocardiogram 07/22/22 23:41 Interpretation Summary Left ventricular systolic function is normal. The estimated ejection fraction is 70 %. The right atrium is mildly enlarged. Mild (1+) mitral valve insufficiency. Mild to moderate (1-2+) eccentric tricuspid valve insufficiency. Mild diffuse aortic valve thickening. Trivial aortic valve insufficiency. Trivial pulmonic valve insufficiency. Mildly dilated aortic root. Echolucency compatible with a pleural effusion. Right ventricular systolic pressure estimated to be 32 mmHg. No evidence for diastolic dysfunction. Agitated saline contrast study considered positive for a right to left interatrial shunt compatible with a PFO, however, a small ASD cannot necessarily be excluded. Comment: Echolucencies noted in the hepatic area compatible with hepatic cysts. Consider further radiologic evaluation if clinically indicated. Ordering Physician: Uriah Vega Referring Physician: Michelle Deng Performed By: Guera Christianson, RDCS, RVT Physical Exam Narrative Physical exam: General: Alert, Oriented x3, Cooperative HEENT: Atraumatic Oral: Moist Mucosa Neck: Supple Lungs: Diminished to auscultation Cardiovascular: HS I+II, regular, no murmurs Abdomen: Bowel Sounds Present, Soft, Non Tender Extremities: No edema, tenderness over the right hip Skin: No rashes, No breakdown Neurological: Grossly intact Psych/Mental Status: Appropriate Assessment & Plan Assessment/Plan (1) Fracture of right hip: (2) Aspiration pneumonia: (3) Paroxysmal atrial fibrillation: PLAN: Plan 1.?POD #6 status post right total hip arthroplasty for right impacted subcapital fracture of the femoral neck Status post mechanical fall. Pain is controlled, Continue per orthopedics recommendations, PT and OT to evaluate and treat 2.?Paroxysmal atrial fibrillation, back in NSR Continue with Cardizem and Lovenox; will transition to Eliquis at discharge 3.?Postop fever, likely secondary to atelectasis versus aspiration pneumonitis Blood cultures are negative. Continue on oral Augmentin, last day is 07/27/22 4.?Acute hypoxia secondary to atelectasis/aspiration pneumonitis, on 2L oxygen Respiratory panel as well as COVID and flu were negative CTA of the chest was negative for acute PE or fat emboli Continue to encourage use of incentive spirometer 5.?Postop anemia, hemoglobin remained stable, Will check iron stores, start on oral iron, Will continue to trend CBCD 6. DVT PPx- on Lovenox SC Charges/Coding Visit Charges Inpatient E&M: 98389 Subs Hosp L2
[2022-07-25] MEDS: Calcium Carbonate 500 MG Tablet PO ×2 (09:21→12:18)
[2022-07-25] MEDS: Cholecalciferol (VIT D3) 25 MCG TABLET (1,000 UNITS) PO (09:22)
[2022-07-25] MEDS: Senna/Docusate Sodium 1 Tablet 2 TABLET PO (09:22)
[2022-07-25] MEDS: Multivitamins,Therapeutic Tablet 1 TABLET PO (09:22)
[2022-07-25] MEDS: Enoxaparin 60 MG/0.6 ML Syringe SC (09:22)
[2022-07-25] MEDS: Amox/Clavulanate 875 MG Tablet PO (09:23)
[2022-07-25] MEDS: Aspirin E.C. 81 MG Tablet PO (09:23)
[2022-07-25 10:02] LABS: Absolute Lymphocyte Count 0.92 X10^3/uL (0.83-4.51); Absolute Neutrophil Count 3.7 X10^3/uL (2.0-7.7); Basophil# 0.02 X10^3/uL; Basophil% 0.4 % (0-1); Eosinophil# 0.24 X10^3/uL; Eosinophils% 4.5 % (0-5); Hematocrit 29.8 % (37-47); Hemoglobin 9.3 g/dL (12.0-15.0); Lymphocyte # 0.92 X10^3/ul (0.83-4.51); Lymphocyte % 17.2 % (19-41); Mean Corp Hgb Conc 31.2 g/dL (32-36); Mean Corpuscular Hgb 27.8 pg (27.0-32.0); Mean Corpuscular Volume 89.2 fL (81-99); Mean Platelet Vol. 10.3 fl (6.2-12.0); Monocyte# 0.39 X10^3/uL; Monocyte% 7.3 % (0-10); NRBC Flagged by Analyzer 0.6 % (0-5); Neutrophil # 3.74 X10^3/uL (2.7-7.7); Neutrophil % 69.9 % (47-70); Platelet Count 279 K/mm3 (150-450); RBC Distribution Width CV 13.4 % (11.6-14.6); RBC Distribution Width SD 43.9 fl (35.1-43.9); Red Blood Count 3.34 M/mm3 (4.2-5.4); White Blood Count 5.4 K/mm3 (4.4-11.0)
[2022-07-25 10:34] LABS: ALB/GLOB Ratio 0.5 RATIO (0.9-2.4); AST(SGOT) 42 U/L (15-37); Alanine Aminotransfer ALT/SGPT 27 U/L (13-56); Albumin, Serum 2.2 g/dL (3.2-5.0); Alkaline Phosphatase 136 U/L (45-117); Anion Gap 9 (5-15); BUN 13 mg/dL (7-18); BUN/Creat Ratio 16.3 RATIO (10-20); Calcium,Total 8.4 mg/dL (8.5-10.1); Chloride 102 mmol/L (98-107); EST Glomerular Filtration Rate 76 mL/min (>60); Est Glom Filt Rate - Afr Amer 91 mL/min (>60); Estimated Creatinine Clearance 61.26 ml/min; Ferritin 219 ng/mL (8-252); Globulin 4.3 g/dL (2.2-4.2); Glucose 115 mg/dL (74-106); Iron 14 ug/dL (50-170); Iron Binding Capacity,Total 210 ug/dL (250-450); PERCENT IRON SATURATION 6.7 % (15.0-55.0); Potassium 3.3 mmol/L (3.5-5.1); Protein, Total 6.5 g/dL (6.4-8.2); Sodium Level 138 mmol/L (136-145)
[2022-07-25] MEDS: Ferrous Sulfate 325 MG Tablet PO (12:18)
--- NOTE | 2022-07-25 14:07 | CASEMGMT ---
ANGELITA sent orders and COVID test to [facility] via [employer]. ANGELITA completed 7000 in [employer] system. ANGELITA arranged for patient to get picked up at 330p via [facility] van by [facility]. ANGELITA notified [facility] via [employer]. SW notified RN, propellant charge loader, and patient. Plan:d/c to [facility] at [place] under skilled level of care on a convalescent stay. [facility] transported via wheelchair. Tanya Cardona STRATEGY INTERN SOHAIL
--- NOTE | 2022-07-25 14:59 | CHAPLAIN ---
Type of Pastoral Visit _x__ Initial Visit ___ Follow-up Visit ___ On-call Visit ___ General Patient Visit ___ Spiritual Assessment ___ Family Conference ___ Bereavement ___ Rapid Response ___ Code Blue ___ Other (describe below) Pastoral Care Referral From _x__ Patient ___ Family ___ Nurse ___ Physician ___ Complaint Investigations Officer ___ Power System Electrical Engineer ___ Other (describe below) Sacrament/Intervention _x__ Active listening ___ Anointing ___ Sabianism ___ Bereavement ___ Communion ___ Allie exploration ___ ___ Life review _x__ Prayer ___ Reconciliation ___ Sacrament of Sick ___ Supportive presence ___ Wedding ___ Other (describe below) Pastoral Comments patient reports that she is doing much better and will be leaving today for a rehab facility for short stay; friend is with her and helping with her clothes; pt is member of a local zoroastrianism and welcomes prayer support at this time
--- NOTE | 2022-07-25 15:19 | DS.PCM_ITS ---
Providers Date of Admission: 07/19/22 Date of Discharge: 07/25/22 Primary Care Physician: Dr. Michelle Deng MD Consultations 07/20/22 08:38 Consult: Orthopedics Routine Consulting Provider: Claudio Correa Reason for Consult: right hip fracture EMERGENT Consult: No MD Notified: Yes Date Notified: 07/20/22 Time Notified: 07:00 Method of Notification: Text Reason For Visit: HIP FRACTURE Diagnosis Discharge Diagnosis (1) Fracture of right hip: Status: Acute Code(s): S72.001A - Fracture of unspecified part of neck of right femur, initial encounter for closed fracture (2) Aspiration pneumonia: Status: Acute Code(s): J69.0 - Pneumonitis due to inhalation of food and vomit (3) Paroxysmal atrial fibrillation: Status: Acute Code(s): I48.0 - Paroxysmal atrial fibrillation Plan 1.?POD #6 status post right total hip arthroplasty for right impacted subcapital fracture of the femoral neck 2.?Paroxysmal atrial fibrillation 3.?Postop fever, likely secondary to atelectasis versus aspiration pneumonitis 4.?Acute hypoxia secondary to atelectasis/aspiration pneumonitis 5.?Postop anemia Medications at Discharge Home Medications aspirin 81 mg tablet,delayed release 81 mg PO DAILY [facility] 07/19/22 cholecalciferol (vitamin D3) 25 mcg (1,000 unit) capsule (Vitamin D3) 25 mcg PO DAILY supplement 07/19/22 multivitamin 1 tab PO DAILY supplement 07/19/22 oxycodone 5 mg tablet 5 mg PO Q4H PRN PRN Pain Score 6-10 7 days #42 tabs 07/21/22 sennosides 8.6 mg-docusate sodium 50 mg tablet (Stool Softener-Stimulant L axative) 2 tab PO BID #60 tabs 07/21/22 apixaban 5 mg tablet (Eliquis) 5 mg PO BID #60 tabs 07/23/22 diltiazem HCl 30 mg tablet 30 mg PO Q8 #90 tabs 07/23/22 amoxicillin 875 mg-potassium clavulanate 125 mg tablet 875 mg PO BID 2 days #0 tabs 07/25/22 Hospital Course Operations - (Right hip arthroplasty on 07/20/22) Procedures 2-D Echocardiogram Summary of Care Provided Minutes Spent on Discharge: 35 Hospital Course: 72-year-old white female with no significant past medical history who presented to the emergency department on 07/19/2022 after sustaining a mechanical fall on uneven concrete and experiencing acute right hip pain following.? X-ray of hip in the emergency department showed a acute impacted fracture that was subcapital in the right femoral neck.? She was evaluated by orthopedic surgery and taken to the operating room on 07/20/2022 at which time she had an uncomplicated right total hip arthroplasty performed.? Her vitamin D level was assessed and found to be normal.? Patient was noted on postop day 2 to have increased shortness of breath with hypoxia. Respiratory panel, COVID-19 rapid antigen test as well as flu were negative. CTA of the chest was negative for acute PE or fat emboli. It did show basilar infiltrate left lower lobe. Patient was felt to probably aspirated postoperatively. She was started on Augmentin and she will complete 7 days of antibiotics. She was encouraged to use incentive spirometer. She was also febrile and blood cultures cultures were negative. Patient generally did well, remained on 2 L of oxygen. She was encouraged to use incentive spirometer. She also developed paroxysmal atrial fibrillation with RVR, she was in and out of weight, she was started on Cardizem 30 mg p.o. 3 times daily, as well as therapeutic Lovenox. She was discharged on Eliquis. She was seen by PT and OT and skilled for discharge to alf facility. She is to maintain the silver dressing x7 days and is okay to shower postop day [address].? She is to follow-up with Dr. Correa in his office in 2 weeks for repeat x-rays and a wound check.? Physical Exam Narrative Physical exam: General: Alert, Oriented x3, Cooperative HEENT: Atraumatic Oral: Moist Mucosa Neck: Supple Lungs: Diminished to auscultation Cardiovascular: HS I+II, regular, no murmurs Abdomen: Bowel Sounds Present, Soft, Non Tender Extremities: No edema Skin: No rashes, No breakdown Neurological: Grossly intact Psych/Mental Status: Appropriate Weight / BMI Weight Weight: 63.8 kg Body Mass Index (BMI) 22.6 ABG / Lab / Microbiology Data Result Diagrams: 07/25/22 09:44 07/25/22 09:44 Laboratory: Laboratory Results - last 24 hr 07/25/22 09:44: Sodium 138, Potassium 3.3 L, Chloride 102, Carbon Dioxide 27.0, Anion Gap 9, BUN 13, Creatinine 0.80, Estim Creat Clear Calc 61.26, Est GFR (M DRD) Af Amer 91, Est GFR (MDRD) Non-Af 76, BUN/Creatinine Ratio 16.3, Glucose 115 H, Calcium 8.4 L, Iron 14 L, TIBC 210 L, Iron Saturation 6.7 L, Ferritin 219, Total Bilirubin 0.70, AST 42 H, ALT 27, Alkaline Phosphatase 136 H, Total Protein 6.5, Albumin 2.2 L, Globulin 4.3 H, Albumin/Globulin Ratio 0.5 L 07/25/22 09:44: WBC 5.4, RBC 3.34 L, Hgb 9.3 L, Hct 29.8 L, MCV 89.2, MCH 27.8, MCHC 31.2 L, RDW Std Deviation 43.9, RDW Coeff of Maldonado 13.4, Plt Count 279, MPV 10.3, Immature Gran % (Auto) 0.700, Neut % (Auto) 69.9, Lymph % (Auto) 17.2 L, [place] % (Auto) 7.3, Eos % (Auto) 4.5, Baso % (Auto) 0.4, Absolute Neuts (auto) 3.7, Absolute Lymphs (auto) 0.92, Nucleated RBC % 0.6 Microbiology: Microbiology 07/25/22 12:45 Nasal Secretion SARS-CoV-2 Antigen (Rapid) - Final 07/21/22 19:00 Blood Culture (Wb) - Anticubital Left Blood Culture - Preliminary No growth in 48 hours. 07/21/22 19:07 Blood Culture (Wb) - Right Hand Blood Culture - Preliminary No growth in 48 hours. 07/21/22 17:16 Mucosa - Nasopharyngeal Respiratory Panel (PCR) - Final 07/21/22 16:25 Nasal Secretion SARS-CoV-2 & FLU Antigen (Rapid) - Final D/C Instructions Discharge Diet: No restrictions Weight Bearing Status: Weight bearing as tolerated Keep extremity elevated above heart level: Operative Extremity Call your doctor if your incision/area has: Continuous Slow Oozing, Sudden I ncreased Bleeding, Increased Pain/ Swelling, Increased Redness, Foul Smelling Discharge and Swelling at the incision site Call your doctor if you observe: Fever of 101 or Higher Cleanse incision/area with: Do not get Incision Wet (Until after 7 days and then do not soak in a tub okay to shower at that time) Additional Dressing/Incision Instructions: Okay to shower postop day 2 Additional Instructions: Please maintain posterior hip precautions as described by physical therapy at the time of discharge Meaningful Use Info Meaningful Use Diagnoses (Choose all that apply): None applicable Discharge Plan Admission Admit Date/Time: 07/19/22 19:40 Primary Reason for Your Visit: Right hip pain Attending Provider: Loren Davis Primary Care Provider: Michelle Deng Consulting Providers: Claudio Wolf ; Claudio Correa ; Karen Barbosa Instructions Additional Instructions / Restrictions: 1. Please follow posterior hip replacement precautions as described by physical therapy 2. While in bed please utilize a blanket between your knees to maintain hip precautions 3. Okay to shower postop day [address] 4. Remove dressing on postop day 7 5. Okay to shower after dressing removal but avoid soaking in a tub until permitted by orthopedic surgery 6. Please utilize a walker at all times until released by physical therapy Discharge Orders/Prescriptions Prescriptions: New oxycodone 5 mg Tablet 5 mg PO Q4H PRN PRN (Reason: Pain Score 6-10) 7 Days Qty: 42 0RF sennosides-docusate sodium [Stool Softener-Stimulant Laxat] 8.6-50 mg Tablet 2 tab PO BID Qty: 60 0RF diltiazem HCl 30 mg Tablet 30 mg PO Q8 Qty: 90 0RF Eliquis 5 mg tablet 5 mg PO BID Qty: 60 0RF amoxicillin-pot clavulanate 875-125 mg Tablet 875 mg PO BID 2 Days Qty: 0 0RF Rx Instructions: Last dose is 07/27/22 morning Continued aspirin 81 mg Tablet,Delayed Release (Dr/Ec) 81 mg PO DAILY multivitamin Tablet 1 tab PO DAILY cholecalciferol (vitamin D3) [Vitamin D3] 25 mcg (1,000 unit) Capsule 25 mcg PO DAILY Referrals / Follow Up: Michelle Deng MD [Primary Care Provider] - Within 2 Weeks Claudio Correa DO [Med Staff - Active Staff] - Within 2 Weeks (Call for appointment) Alan Cooper MD [Med Staff - Active Staff] - Within 2 Weeks (post of A-fib) Disposition Disposition (needs filled in before D/C Order can be placed): Long Term Facility Charges/Coding Visit Charges Inpatient E&M: 82436 Disch Hosp >30min
--- NOTE | 2022-07-25 15:39 | NURSING ---
Report [facility] to [facility], nurse Violet will take care of pt when [facility] arrives[facility].
== END 2022-07-25 15:44 | disposition skilled nursing facility (03) | DRG 521 ==
LOC: ED 19:49 → MS3 19:59 → PCU 07-23 06:13
PROVIDERS: Internal Medicine; Student in an Organized Health Care Education/Training Program; Admitting Provider Family Medicine; Emergency Provider Emergency Medicine; PCP Family Medicine; Visit Provider Internal Medicine
PROC: 0SR90JZ Replacement of Right Hip Joint with Synthetic Substitute, Open Approach (ICD-10-PCS; CPT 27130; principal; 2022-07-20 16:05)
DX: S72.001A Fracture of unspecified part of neck of right femur, initial encounter for closed fracture (principal); J69.0 Pneumonitis due to inhalation of food and vomit; J98.11 Atelectasis; I48.0 Paroxysmal atrial fibrillation; W19.XXXA Unspecified fall, initial encounter; Z79.82 Long term (current) use of aspirin; R50.82 Postprocedural fever; Z79.01 Long term (current) use of anticoagulants; R09.02 Hypoxemia; Z60.2 Problems related to living alone
CPT/HCPCS: 36415; 71045; 71275; 73502; 80048; 80053; 81001; 82306; 82728; 83540; 83550; 83735; 84100; 84145; 84443; 85014; 85018; 85025; 85610; 85730; 86850; 86900; 86901; 87040; 87426; 87428; 87633; 88305; 88311; 93005; 93306; 97110; 97162; 97165; 97530; 97535; 99284; C1776; J7030; J7040; J7120; Q9967; A4216; J0696; J2405

== ENCOUNTER → 2022-11-13 | Outpatient (CLI) | payer MEDICARE, SELFPAY ==
[2022-11-13 18:01] LABS: Absolute Lymphocyte Count 1.22 X10^3/uL (0.83-4.51); Absolute Neutrophil Count 3.3 X10^3/uL (2.0-7.7); Basophil# 0.04 X10^3/uL; Basophil% 0.8 % (0-1); Eosinophil# 0.17 X10^3/uL; Eosinophils% 3.4 % (0-5); Hematocrit 39.3 % (37-47); Hemoglobin 11.7 g/dL (12.0-15.0); Lymphocyte # 1.22 X10^3/ul (0.83-4.51); Lymphocyte % 24.2 % (19-41); Mean Corp Hgb Conc 29.8 g/dL (32-36); Mean Corpuscular Hgb 25.3 pg (27.0-32.0); Mean Corpuscular Volume 84.9 fL (81-99); Mean Platelet Vol. 10.9 fl (6.2-12.0); Monocyte# 0.32 X10^3/uL; Monocyte% 6.3 % (0-10); NRBC Flagged by Analyzer 0 % (0-5); Neutrophil # 3.28 X10^3/uL (2.7-7.7); Neutrophil % 65.1 % (47-70); Platelet Count 265 K/mm3 (150-450); RBC Distribution Width CV 17.2 % (11.6-14.6); RBC Distribution Width SD 53.5 fl (35.1-43.9); Red Blood Count 4.63 M/mm3 (4.2-5.4)
== END | disposition home or self-care (01) ==
LOC: MFPLAB 14:55
PROVIDERS: PCP Family Medicine; Visit Provider Family Medicine
DX: D64.9 Anemia, unspecified (principal)
CPT/HCPCS: 36415; 85025

== ENCOUNTER → 2023-04-04 | Outpatient (CLI) | payer MEDICARE, SELFPAY ==
--- NOTE | 2023-04-04 14:05 | RAD_ITS ---
STUDY: X-RAY - LUMBAR SPINE REASON FOR EXAM: Female, 72 years old. Radiculopathy, lumbar region TECHNIQUE: AP and lateral view(s) of the lumbar spine were obtained. COMPARISON: None FINDINGS: Normal lumbar lordosis. There is mild dextro scoliosis. There is a normal alignment of the vertebrae. There is wedging of superior endplates of all vertebral bodies with most severe involvement of L1 without discrete fracture line possibly chronic. Normal disc space heights. Diffuse vascular calcification of the aorta without evidence for aneurysm RAD/Lumbar Spine 2 or 3 Views IMPRESSION: Multilevel compression deformities most likely chronic however if concern for acute injury MRI recommended Electronically Signed: Cleveland Mckinley MD at 17:53 EDT ,
== END | disposition home or self-care (01) ==
LOC: RAD 13:59
PROVIDERS: PCP Family Medicine; Referring Provider Anesthesiology Pain Medicine; Visit Provider Anesthesiology Pain Medicine
DX: M54.16 Radiculopathy, lumbar region (principal)
CPT/HCPCS: 72100

== ENCOUNTER → 2023-06-29 | Outpatient (CLI) | payer MEDICARE, SELFPAY ==
--- NOTE | 2023-06-29 12:58 | CT_ITS ---
STUDY: CTA CHEST REASON FOR EXAM: Female, 72 years old. TAA RADIATION DOSAGE (If Supplied By Facility): CTDIvol = ( 6.71 ) mGy, DLP = ( 210.99 ) mGycm TECHNIQUE: The examination was performed with the intravenous administration of IV 100mL Isovue-[id number]. Post-processing of the angiographic images was performed, with multiplanar reformation and 3D reconstruction. Individualized dose optimization techniques were used for this CT. COMPARISON: Comparison is made with prior study dated July 22, 2022. FINDINGS: Normal enhancement of the main pulmonary artery and right and left pulmonary arteries. Normal enhancement of the bilateral peripheral pulmonary arteries. There is no demonstrated pulmonary embolism. There is aneurysmal dilatation of the ascending aorta. The transverse diameter of the ascending aorta measures 42.1 mm''s. There is no demonstrated aortic dissection. Normal heart and pericardium. Normal mediastinum. Normal hilar regions. Normal visualized trachea and bronchi. The lungs are well expanded. Normal pulmonary parenchyma. Normal pleura. Normal chest wall structures. Stable moderate compression of the T6 vertebrae. Severe compression of the L1 vertebrae with retropulsion of the fracture fragment. There is 11.4 cm x 10.1 cm cyst in the right lobe of liver. Scattered small cysts are also seen in the left lobe. CT/CTA Chest W/WO Contrast IMPRESSION: Stable examination. Electronically Signed: Kam Schulz MD at 15:00 EST ,
[2023-06-29 13:36] LABS: CREATININE FINGERSTICK < 1.0 mg/dL (0.55-1.02); EGFR FINGERSTICK > 60.0000 mL/min (>60)
== END | disposition home or self-care (01) ==
LOC: CT 12:57
PROVIDERS: PCP Family Medicine; Referring Provider Nurse Practitioner Gerontology; Visit Provider Nurse Practitioner Gerontology
DX: I71.20 Thoracic aortic aneurysm, without rupture, unspecified (principal)
CPT/HCPCS: 71275; Q9967

== ENCOUNTER → 2024-11-24 | Outpatient (CLI) | payer MEDICARE, SELFPAY ==
[2024-11-24 17:43] LABS: Absolute Lymphocyte Count 1.62 X10^3/uL (0.83-4.51); Absolute Neutrophil Count 4.7 X10^3/uL (2.0-7.7); Basophil# 0.04 X10^3/uL; Basophil% 0.6 % (0-1); Eosinophil# 0.15 X10^3/uL; Eosinophils% 2.1 % (0-5); Hematocrit 42.5 % (37-47); Hemoglobin 13.1 g/dL (12.0-15.0); Lymphocyte # 1.62 X10^3/ul (0.83-4.51); Lymphocyte % 22.9 % (19-41); Mean Corp Hgb Conc 30.8 g/dL (32-36); Mean Corpuscular Hgb 25.9 pg (27.0-32.0); Monocyte# 0.55 X10^3/uL; Monocyte% 7.8 % (0-10); NRBC Flagged by Analyzer 0 % (0-5); Neutrophil # 4.66 X10^3/uL (2.7-7.7); Neutrophil % 65.9 % (47-70); Platelet Count 354 K/mm3 (150-450); RBC Distribution Width CV 15.4 % (11.6-14.6); RBC Distribution Width SD 46.4 fl (35.1-43.9); Red Blood Count 5.06 M/mm3 (4.2-5.4); White Blood Count 7.1 K/mm3 (4.4-11.0)
[2024-11-24 18:18] LABS: ALB/GLOB Ratio 0.9 RATIO (0.9-2.4); AST(SGOT) 24 U/L (<=31); Alanine Aminotransfer ALT/SGPT 10 U/L (<=34); Albumin, Serum 4.2 g/dL (3.4-4.8); Alkaline Phosphatase 135 U/L (35-104); Anion Gap 12 (5-15); BUN 32 mg/dL (4-19); BUN/Creat Ratio 28.8 RATIO (10-20); Carbon Dioxide 24.3 mmol/L (21.0-32.0); Chloride 102 mmol/L (98-108); Cholesterol 165 mg/dL (<=200); Creatinine, Serum 1.11 mg/dL (0.70-1.20); EST Glomerular Filtration Rate 53 (>60); Globulin 4.9 g/dL (2.2-4.2); Glucose 74 mg/dL (70-99); High Density Lipoprotein 43 mg/dL; Low Density Lipoprotein Calc. 99 mg/dL; Potassium 4.3 mmol/L (3.3-5.1); Protein, Total 9.2 g/dL (5.9-8.4); Sodium Level 138 mmol/L (133-145); Total Bilirubin 0.81 mg/dL (0.00-1.30); Triglycerides 116 mg/dL; Very Low Density Lipoprotein 23 mg/dL (5-40); cholesterol:hdl ratio screen 3.83
== END | disposition home or self-care (01) ==
LOC: MFPLAB 15:28
PROVIDERS: PCP Family Medicine; Referring Provider Family Medicine; Visit Provider Family Medicine
DX: Z00.00 Encounter for general adult medical examination without abnormal findings (principal); D64.9 Anemia, unspecified; E55.9 Vitamin D deficiency, unspecified; Z12.11 Encounter for screening for malignant neoplasm of colon
CPT/HCPCS: 36415; 80053; 80061; 82306; 85025

== ENCOUNTER → 2024-12-03 | Outpatient (CLI) | payer MEDICARE, SELFPAY ==
--- NOTE | 2024-12-03 12:46 | BI_ITS ---
EXAM: SCRN MAMM (CAD)W/KALIN BILAT 12/03/2024 CLINICAL HISTORY: F, Age 74 y/o , SCREENING FOR BREAST CANCER TECHNIQUE: Bilateral screening digital breast tomosynthesis with 2D and 3D images. Computer aided detection. COMPARISON: Prior exam(s) dated 04/05/2017. FINDINGS: TISSUE DENSITY: The breast tissue is composed of scattered area of fibroglandular density. Bilateral Breast Mammographic Findings: No significant masses, calcifications or other abnormalities are identified. BI/SCRN MAMM (CAD)W/KALIN BILAT IMPRESSION: Right Breast: BIRADS 1 NEGATIVE. Left Breast: BIRADS 1 NEGATIVE. OVERALL FINAL ASSESSMENT: BIRADS 1 NEGATIVE. RECOMMENDATION: Routine annual follow-up in 1 Year A letter with findings and recommendations will be mailed to the patient. Reading Location: [facility]
== END | disposition home or self-care (01) ==
LOC: OPBI 12:44
PROVIDERS: PCP Family Medicine; Referring Provider Family Medicine; Visit Provider Family Medicine
DX: Z12.31 Encounter for screening mammogram for malignant neoplasm of breast (principal)
CPT/HCPCS: 77063; 77067

== ENCOUNTER → 2025-05-25 | Outpatient (CLI) | payer MEDICARE, SELFPAY ==
[2025-05-25 18:26] LABS: Vitamin D,25 Hydroxy 81.1 ng/mL (30-100)
== END | disposition home or self-care (01) ==
LOC: MFPLAB 15:38
PROVIDERS: PCP Family Medicine; Visit Provider Family Medicine
DX: T45.2X1A Poisoning by vitamins, accidental (unintentional), initial encounter (principal)
CPT/HCPCS: 36415; 82306